=== PATIENT | male | born 1930 | race Caucasian/White ===

== ENCOUNTER 2016-04-04 13:08 | Inpatient (IN) | payer BC, OTHER ==
[~2016-04-04] VITALS: Ht 177.8 cm; Wt 79.3 kg
[~2016-04-04 13:08] MED LIST: CMD5 PO; GLIP5TAB3 PO; LEVO25TA5 PO; LISI-729 PO; MULT-190 PO; TCMD2 PO; ZCRT/40 PO
[2016-04-04] MEDS ORDERED: WARF2TAB8 PO (13:32)
[2016-04-04] MEDS ORDERED: WARF5TAB7 PO (13:32)
[2016-04-04] MEDS ORDERED: MIRT30TA2 PO (13:32)
[2016-04-04] MEDS ORDERED: SODIUM CHLORIDE 0.9% 1000ML 1,000 ML IV STA (13:32)
[2016-04-04] MEDS ORDERED: FURO-85 PO (13:32)
[2016-04-04] MEDS ORDERED: WARF3TAB6 PO (13:32)
--- NOTE | 2016-04-04 13:39 | EMERGENCY ROOM VISIT NOTE ---
History Report prepared by Willie: Lulu Humphries Under the Supervision of: Dr. Jade Gomez M.D. First contact with patient: 13:23 Chief Complaint: DIZZY Stated Complaint: DIZZINESS History of Present Illness The patient is an 85 year old male who presents to the Emergency Room with complaints of worsening dizziness for the past 3 days. He is accompanied by his daughter. She reports the patient fell 3 days ago while walking into his shower. The patient denied any injuries or trauma being sustained during the fall. This morning, the patient called his daughter and told her he had fallen out of bed earlier and was experiencing worsening dizziness. He has a history of dementia and short term memory loss from a stroke. His daughter states he complained of feeling "cold and shaky" and his skin and finger nails have been "blue tinged" recently. She notes the patient has also forgotten they were on the phone recently, and laid the phone down then walked away from it, which is very unusual for him. The patient denies any recent fevers or urinary symptoms. He is on daily Coumadin and Warfarin and his daughter states his most recent INR was around 2.7. He also has a history of atrial fibrillation and mitral valve prolapse. The patient denies any abdominal pain or nausea. He reports he has been eating well recently and states he last ate a grilled cheese sandwich for lunch. 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 A total of 10 systems reviewed and were otherwise negative. Past Medical & Surgical Medical Problems: (1) Anticoagulated on warfarin (2) Atrial fibrillation (3) Benign hypertension (4) Cerebral infarction (5) Diabetes mellitus type 2 (6) Dyslipidemia (7) Hypothyroidism (8) Paroxysmal atrial fibrillation Family History Patient reports no known family medical history. Social History Smoking Status: Never Smoker Alcohol Use: occasionally Drug Use: none Marital Status: Housing Status: lives alone Occupation Status: retired Current/Historical Medications Scheduled Furosemide (Lasix), 20 MG PO DAILY Glipizide (Glucotrol), 5 MG PO DAILY Levothyroxine Sodium (Levothyroxine Sodium), 25 MCG PO DAILY Lisinopril (Zestril), 1.25 MG PO DAILY Mirtazapine Soltab (Remeron Soltab), 30 MG PO DAILY Simvastatin (Zocor), 40 MG PO DAILY Warfarin Sod (Jantoven), 9 MG PO 5XWK Warfarin Sod (Jantoven), 5 MG PO 2XWK Warfarin Sod (Jantoven), 2 MG PO 2XWK Allergies Coded Allergies: Guaifenesin (Verified Allergy, Unknown, Exgest LA, 04/04/15) Phenylpropanolamine (Verified Allergy, Unknown, Exgest LA, 04/04/15) Promethazine (Verified Allergy, Unknown, unknown, 04/04/15) Quinine (Verified Allergy, Unknown, ?, 04/04/15) Sulfa Drugs (Verified Allergy, Unknown, ?, 04/04/15) Physical Exam Vital Signs Date Time Temp Pulse Resp B/P Pulse Ox O2 Delivery O2 Flow Rate FiO2 04/04/16 15:19 78 20 113/63 95 Room Air 04/04/16 15:18 83 20 113/63 95 Room Air 04/04/16 14:48 90 21 99/48 94 Room Air 04/04/16 13:58 82 04/04/16 13:16 36.9 80 18 90/59 98 Room Air Physical Exam Vital signs reviewed. General: Elderly-appearing 85 year old male, in no significant distress. Patient is somnolent but answers questions appropriately. HEENT: No scleral icterus, PERRLA, neck supple. Atraumatic. Cardiovascular: Regular rate and rhythm, no extra sounds. Pulmonary: Clear to auscultation bilaterally, normal work of breathing. Abdomen: Soft, nontender, nondistended, positive bowel sounds. Musculoskeletal: Atraumatic, no peripheral edema. Neurologic: Patient awake alert and oriented x 3, full strength in all 4 extremities. Cranial nerves 2 through 12 grossly intact. Skin: Warm to touch, but patient is noted to be afebrile. Skin is dry, no rash Medical Decision & Procedures ER Provider Diagnostic Interpretation: This X-Ray was reviewed and interpreted by myself and the radiologist. SINGLE VIEW CHEST IMPRESSION: Cardiomegaly and emphysema with no acute cardiopulmonary abnormality. Electronically signed by: Jordan Carr M.D. 04/04/2016 2:25 PM Dictated Date/Time: 04/04/2016 2:[address] scan was reviewed and interpreted by the radiologist and reviewed by myself. HEAD CT NONCONTRAST Impression: No significant change compared to the prior study. No acute intracranial abnormality. Extensive sinus disease as described above. Electronically signed by: Luis Eduardo Hirsch M.D. 04/04/2016 2:57 PM Dictated Date/Time: 04/04/2016 2:30 PM Laboratory Results 04/04/16 13:58 Red Blood Count 4.13, Mean Corpuscular Volume 90.1, Mean Corpuscular Hemoglobin 31.2, Mean Corpuscular Hemoglobin Concent 34.7, Mean Platelet Volume 10.1, Neutrophils (%) (Auto) 70.7, Lymphocytes (%) (Auto) 17.5, Monocytes (%) (Auto) 11.3, Eosinophils (%) (Auto) 0.3, Basophils (%) (Auto) 0.1, Neutrophils # (Auto ) 4.93, Lymphocytes # (Auto) 1.22, Monocytes # (Auto) 0.79, Eosinophils # (Auto ) 0.02, Basophils # (Auto) 0.01 04/04/16 13:58 Test 04/04/16 13:58 04/04/16 14:08 04/04/16 14:09 04/04/16 14:56 White Blood Count 6.98 K/uL (4.8-10.8) Red Blood Count 4.13 M/uL (4.7-6.1) Hemoglobin 12.9 g/dL (14.0-18.0) Hematocrit 37.2 % (42-52) Mean Corpuscular Volume 90.1 fL (80-100) Mean Corpuscular Hemoglobin 31.2 pg (25-34) Mean Corpuscular Hemoglobin Concent 34.7 g/dl (32-36) Platelet Count 163 K/uL (130-400) Mean Platelet Volume 10.1 fL (7.4-10.4) Neutrophils (%) (Auto) 70.7 % Lymphocytes (%) (Auto) 17.5 % Monocytes (%) (Auto) 11.3 % Eosinophils (%) (Auto) 0.3 % Basophils (%) (Auto) 0.1 % Neutrophils # (Auto) 4.93 K/uL (1.4-6.5) Lymphocytes # (Auto) 1.22 K/uL (1.2-3.4) Monocytes # (Auto) 0.79 K/uL (0.11-0.59) Eosinophils # (Auto) 0.02 K/uL (0-0.5) Basophils # (Auto) 0.01 K/uL (0-0.2) RDW Standard Deviation 43.9 fL (36.4-46.3) RDW Coefficient of Variation 13.4 % (11.5-14.5) Immature Granulocyte % (Auto) 0.1 % Immature Granulocyte # (Auto) 0.01 K/uL (0.00-0.02) Prothrombin Time 15.4 SECONDS (9.0-12.0) Prothromb Time International Ratio 1.4 (0.9-1.1) Activated Partial Thromboplast Time 26.4 SECONDS (21.0-31.0) Partial Thromboplastin Ratio 1.0 Anion Gap 10.0 mmol/L (3-11) Estimated GFR () 21.0 Estimated GFR (Non- 18.1 BUN/Creatinine Ratio 20.1 (10-20) Calcium Level 9.1 mg/dl (8.5-10.1) Magnesium Level 2.4 mg/dl (1.8-2.4) Total Creatine Kinase 2714 U/L (39-308) Creatine Kinase MB 3.0 ng/ml (0.5-3.6) Creatine Kinase MB Ratio 0.1 (0-3.0) Lipase 302 U/L (73-393) Bedside Lactic Acid Venous 1.91 mmol/L (0.90-1.70) Bedside Troponin I 0.030 ng/ml (0-0.045) Urine Color DK YELLOW Urine Appearance CLEAR (CLEAR) Urine pH 5.0 (4.5-7.5) Urine Specific [place] 1.022 (1.000-1.030) Urine Protein NEG (NEG) Urine Glucose (UA) NEG (NEG) Urine Ketones TRACE (NEG) Urine Occult Blood NEG (NEG) Urine Nitrite NEG (NEG) Urine Bilirubin NEG (NEG) Urine Urobilinogen NEG (NEG) Urine Leukocyte Esterase MODERATE (NEG) Urine WBC (Auto) 5-10 /hpf (0-5) Urine RBC (Auto) 0-4 /hpf (0-4) Urine Hyaline Casts (Auto) 1-5 /lpf (0-5) Urine Epithelial Cells (Auto) >30 /lpf (0-5) Urine Bacteria (Auto) NEG (NEG) Urine Yeast (Auto) (NONE PRSENT) Laboratory results per my review. Medications Administered Medications (Trade) Dose Ordered Sig/Bob Route Start Time Stop Time Status Last Admin Dose Admin Sodium Chloride (Nss 1000ml) 1,000 ml @ 125 mls/hr Q8H STAT IV 04/04/16 13:32 04/04/16 21:31 04/04/16 13:32 125 MLS/HR Piperacillin Sod/ Tazobactam Sod 4.5 gm 4.5 gm NOW STAT IV 04/04/16 14:25 04/04/16 14:26 DC 04/04/16 15:10 4.5 GM Sodium Chloride (Nss 500ml) 500 ml @ 999 mls/hr Q31M STAT IV 04/04/16 14:56 04/04/16 15:26 DC 04/04/16 14:56 999 MLS/HR ECG Indication: weakness Rate (beats per minute): 80 Rhythm: atrial fibrillation Findings: Q waves (Anterior), no acute ischemic change, no ectopy ED Course 1328: Past medical records reviewed. The patient was evaluated in room C7. A complete history and physical examination was performed. 1332: NSS 1000 ml @ 125 mls/hr IV. 1425: Zosyn 4.5 gm IV. 1456: NSS 500 ml @ 999 mls/hr IV. 1505: I discussed the patients case with Stephanie Fernández PA-C [facility] Hospitalist. The patient will be further evaluated. Medical Decision Etiologies such as metabolic, infection, hypo/hyperglycemia, electrolyte abnormalities, cardiac sources, intracerebral event, toxicologic, neurologic, as well as others were entertained. This patient was evaluated and appeared to be in no significant distress. IV access was obtained and laboratory work was drawn. The patient was placed on the groundwater monitoring technician and found to be in a rate controlled atrial fibrillation. Patient's laboratory work reveals an INR 1.8. He is in acute renal failure with a BUN of 60 and a creatinine of 3.0. He was hydrated with normal saline solution. Patient was noted to be mildly hypotensive, likely due to volume depletion. The patient will be evaluated by the hospitalist service for further evaluation and management. Consults Time Called: 1500 Consulting Physician: Stephanie Fernández PA-C, [facility] Hospitalist Returned Call: [phone] I discussed the patients case with Stephanie Fernández PA-C, [facility]. The patient will be further evaluated. Impression Primary Impression: Acute renal failure Additional Impressions: Hypotension, Dehydration Scribe Attestation The scribe's documentation has been prepared under my direction and personally reviewed by me in its entirety. I confirm that the note above accurately reflects all work, treatment, procedures, and medical decision making performed by me. Departure Information Dispostion Being Evaluated By Hospitalist Referrals Landy Paige M.D. (PCP) Patient Instructions A Signature Page, My [facility]
[2016-04-04 14:25] LABS: BASO % 0.1 %; BASO ABS # 0.01 K/uL (0-0.2); COMPLETE YES; EOS % 0.3 %; HEMATOCRIT 37.2 % (42-52); IG% 0.1 %; LYMPH % 17.5 %; LYMPH ABS # 1.22 K/uL (1.2-3.4); MEAN CELL VOLUME 90.1 fL (80-100); MEAN CORPUSCULAR HEMOGLOBIN 31.2 pg (25-34); MEAN CORPUSCULAR HGB CONC 34.7 g/dl (32-36); MEAN PLATELET VOLUME 10.1 fL (7.4-10.4); MONO % 11.3 %; NEUT % 70.7 %; PLATELET COUNT 163 K/uL (130-400); RED BLOOD COUNT 4.13 M/uL (4.7-6.1); WHITE BLOOD COUNT 6.98 K/uL (4.8-10.8)
[2016-04-04] MEDS ORDERED: PIPERACILLIN/TAZOBACTAM 4.5 GM/100ML D5W IV STA (14:25)
--- NOTE | 2016-04-04 14:26 | DIAGNOSTIC IMAGING REPORT ---
SINGLE VIEW CHEST CLINICAL HISTORY: Change in mental status. FINDINGS: An AP, portable, upright chest radiograph is compared to study dated 11/28/2014. Correlation is made with chest CT dated 08/26/2011. The examination is degraded by portable technique and patient rotation. The heart is mildly enlarged. The pulmonary vasculature is noncongested. Emphysema and chronic interstitial thickening is similar to previous. There is left basilar atelectasis. No airspace consolidation, large pleural effusion, or pneumothorax is seen. There is biapical scarring. The skeletal structures are osteopenic. The bony thorax is grossly intact. IMPRESSION: Cardiomegaly and emphysema with no acute cardiopulmonary abnormality. Electronically signed by: Jordan Carr M.D. 04/04/2016 2:25 PM Dictated Date/Time: 04/04/2016 2:23 PM
[2016-04-04 14:35] LABS: INR 1.4 (0.9-1.1); PROTHROMBIN TIME (PATIENT) 15.4 SECONDS (9.0-12.0)
[2016-04-04 14:51] LABS: BLOOD UREA NITROGEN 60 mg/dl (7-18); BUN/CREATININE RATIO 20.1 (10-20); CALCIUM 9.1 mg/dl (8.5-10.1); CARBON DIOXIDE 24 mmol/L (21-32); CHLORIDE 100 mmol/L (98-107); GLUCOSE 183 mg/dl (70-99); MAGNESIUM 2.4 mg/dl (1.8-2.4); POTASSIUM 3.9 mmol/L (3.5-5.1); SODIUM 134 mmol/L (136-145)
[2016-04-04] MEDS ORDERED: SODIUM CHLORIDE 0.9% 500ML 500 ML IV STA (14:56)
--- NOTE | 2016-04-04 14:59 | DIAGNOSTIC IMAGING REPORT ---
HEAD CT NONCONTRAST CT DOSE: 638.84 mGy.cm HISTORY: Altered mental status. TECHNIQUE: Multiaxial CT images of the head were performed without the use of intravenous contrast. Automated exposure control was utilized for this study. Comparison: Head CT 04/04/2015. Findings: Complete opacification of the maxillary sinuses, frontal sinuses, and anterior ethmoid cells. The mastoid air cells are clear. The calvarium and skull base are intact. There is no mass, hematoma, midline shift, acute infarct. White matter hypodensity is nonspecific but suggestive of microvascular ischemic change. The ventricles and sulci demonstrate mild age-related involutional changes. Impression: No significant change compared to the prior study. No acute intracranial abnormality. Extensive sinus disease as described above. Electronically signed by: Luis Eduardo Hirsch M.D. 04/04/2016 2:57 PM Dictated Date/Time: 04/04/2016 2:30 PM
[2016-04-04 15:06] LABS: CKMB/CK RATIO 0.1 (0-3.0)
[2016-04-04 15:34] LABS: URINE APPEARANCE CLEAR (CLEAR); URINE BILIRUBIN NEG (NEG); URINE COLOR DK YELLOW; URINE EPITHELIAL CELL AUTO >30 /lpf (0-5); URINE NITRITE NEG (NEG); URINE SPECIFIC GRAVITY 1.022 (1.000-1.030); UROBILINOGEN NEG (NEG); ZZUR CULT IF INDIC CLEAN CATCH YES
[2016-04-04 15:40] LABS: MANUAL MICROSCOPIC REQUIRED? NO; REVIEW REQ? YES
[2016-04-04] MEDS ORDERED: GLUCAGON FOR INJ 1 MG VIAL SQ PRN (16:15)
[2016-04-04] MEDS ORDERED: DEXTROSE 50% 50 ML SYR IV PRN (16:15)
[2016-04-04] MEDS ORDERED: ONDANSETRON INJ 2 MG/ML 2 ML VIAL IV PRN (16:15)
[2016-04-04] MEDS ORDERED: GLUCOSE 10 TABS/TUBE PO PRN (16:15)
[2016-04-04] MEDS ORDERED: GLUCOSE 40% GEL 15 GM TUBE PO PRN (16:15)
--- NOTE | 2016-04-04 16:24 | History and Physical ---
History & Physical Date & Time of Service: Apr 04, 2016 at 15:55 Chief Complaint: Dizziness Primary Care Physician: Landy Paige M.D. History of Present Illness Source: patient, family, clinic records, hospital records Patient seen and examined. 85 year old male with PMHx of Afib on Coumadin, HTN, HLD, DM2, hypothyroidism, CKD stage 3, Diastolic CHF and memory issues presents to the ED complaining of dizziness x 1 week. History is somewhat unclear as patient has memory issues and lives alone. Daughter is at bedside who helps provide additional information. Patient reports that he started getting dizzy about a week ago and objects seemed to be moving around him. He fell in the bathroom several days ago and he isn't sure why, but was able to get up without help since he was alone. He fell out of bed last night. He reports he feels very cold, weak and shaky. Daughter reports that he seems more confused than normal and needed help dressing himself this morning which isn't something that he normally needs help with. He does not remember if he has been eating and drinking well. He denies fevers, syncope, URI symptoms, chest pain, SOB, nausea , vomiting, diarrhea, dysuria, calf pain and edema. Today the patient's daughter went to see him because he said he didn't feel good. Per daughter the patients SBP was in the 80s so she brought him to the ED for further evaluation. In the ED BP is borderline hypotensive, CT head is negative, crea is 3 from baseline of 1.5, CK is 2700. He received IVFs and zosyn. He will be admitted for further workup and treatment. Past Medical/Surgical History Medical Problems: (1) Afib Status: Chronic (2) Atrial fibrillation Status: Chronic (3) Cerebral infarction Status: Chronic (4) CHF (congestive heart failure) Status: Chronic (5) CKD (chronic kidney disease), stage III Status: Chronic (6) CVA (cerebral vascular accident) Status: Chronic (7) DM2 (diabetes mellitus, type 2) Status: Chronic (8) HLD (hyperlipidemia) Status: Chronic (9) HTN (hypertension) Status: Chronic (10) Hypothyroidism Status: Chronic (11) Memory deficits Status: Chronic (12) EMELY on CPAP Status: Chronic Surgical Problems: (1) H/O colonoscopy Status: Chronic (2) History of cataract surgery Status: Chronic (3) S/P tendon repair Status: Chronic Family History FH: CHF (congestive heart failure) Social History Smoking Status: Former Smoker Alcohol Use: none Drug Use: none Marital Status: Housing status: lives alone Occupational Status: retired Immunizations History of Influenza Vaccine: Yes History of Tetanus Vaccine?: Yes History of Pneumococcal: Yes History of Hepatitis B Vaccine: No Multi-Drug Resistant Organisms History of MDRO: No Allergies Coded Allergies: Guaifenesin (Verified Allergy, Unknown, Exgest LA, 04/04/15) Phenylpropanolamine (Verified Allergy, Unknown, Exgest LA, 04/04/15) Promethazine (Verified Allergy, Unknown, unknown, 04/04/15) Quinine (Verified Allergy, Unknown, ?, 04/04/15) Sulfa Drugs (Verified Allergy, Unknown, ?, 04/04/15) Home Medications Scheduled Furosemide (Lasix), 20 MG PO DAILY Glipizide (Glucotrol), 5 MG PO DAILY Levothyroxine Sodium (Levothyroxine Sodium), 25 MCG PO DAILY Lisinopril (Zestril), 1.25 MG PO DAILY Mirtazapine Soltab (Remeron Soltab), 30 MG PO DAILY Simvastatin (Zocor), 40 MG PO DAILY Warfarin Sod (Jantoven), 9 MG PO 5XWK Warfarin Sod (Jantoven), 5 MG PO 2XWK Warfarin Sod (Jantoven), 2 MG PO 2XWK Review of Systems Constitutional: + chills, + weakness, No fever Eyes: No worsening of vision ENT: No nasal symptoms Respiratory: No cough, No shortness of breath Cardiovascular: No chest pain, No edema, No palpitations Abdomen: No constipation, No diarrhea, No nausea, No pain, No vomiting Musculoskeletal: No calf pain, No swelling Genitourinary - Male: No dysuria Neurologic: + vertigo, No numbness/tingling Psychiatric: No anxiety Endocrine: No fatigue Hematologic / Lymphatic: No abnormal bleeding/bruising, No clotting problems Integumentary: No itch, No rash Allergic / Immunologic: No environmental allergies Physical Exam Vital Signs Date Time Temp Pulse Resp B/P Pulse Ox O2 Delivery O2 Flow Rate FiO2 04/04/16 15:19 78 20 113/63 95 Room Air 04/04/16 15:18 83 20 113/63 95 Room Air 04/04/16 14:48 90 21 99/48 94 Room Air 04/04/16 13:58 82 04/04/16 13:16 36.9 80 18 90/59 98 Room Air General Appearance: + pertinent finding (WD/WM elderly appearing 85 year old male lying in bed in NAD with daughter at bedside ) Head: normocephalic, atraumatic Eyes: EOMI, sclerae normal ENT: hearing grossly normal, pharynx normal Neck: supple, no JVD, trachea midline Respiratory/Chest: chest non-tender, lungs clear, normal breath sounds, no respiratory distress, no accessory muscle use Cardiovascular: no edema, no gallop, no JVD, no murmur, normal peripheral pulses, + irregularly irregular (rate in the 80s) Abdomen/GI: normal bowel sounds, non tender, soft Back: normal inspection, no muscle spasm Extremities/Musculoskelatal: no calf tenderness, normal capillary refill, no pedal edema Neurologic/Psych: + pertinent finding (A&Ox3, forgetful,otherwise no motor or sensory deficits noted ) Skin: normal color, warm/dry, no rash Lymphatic: no adenopathy Diagnostics Laboratory Results Results Past 24 Hours Test 04/04/16 13:58 04/04/16 14:08 04/04/16 14:09 04/04/16 14:56 Range/Units White Blood Count 6.98 4.8-10.8 K/uL Red Blood Count 4.13 4.7-6.1 M/uL Hemoglobin 12.9 14.0-18.0 g/dL Hematocrit 37.2 42-52 % Mean Corpuscular Volume 90.1 80-100 fL Mean Corpuscular Hemoglobin 31.2 25-34 pg Mean Corpuscular Hemoglobin Concent 34.7 32-36 g/dl Platelet Count 163 130-400 K/uL Mean Platelet Volume 10.1 7.4-10.4 fL Neutrophils (%) (Auto) 70.7 % Lymphocytes (%) (Auto) 17.5 % Monocytes (%) (Auto) 11.3 % Eosinophils (%) (Auto) 0.3 % Basophils (%) (Auto) 0.1 % Neutrophils # (Auto) 4.93 1.4-6.5 K/uL Lymphocytes # (Auto) 1.22 1.2-3.4 K/uL Monocytes # (Auto) 0.79 0.11-0.59 K/uL Eosinophils # (Auto) 0.02 0-0.5 K/uL Basophils # (Auto) 0.01 0-0.2 K/uL RDW Standard Deviation 43.9 36.4-46.3 fL RDW Coefficient of Variation 13.4 11.5-14.5 % Immature Granulocyte % (Auto) 0.1 % Immature Granulocyte # (Auto) 0.01 0.00-0.02 K/uL Prothrombin Time 15.4 9.0-12.0 SECONDS Prothromb Time International Ratio 1.4 0.9-1.1 Activated Partial Thromboplast Time 26.4 21.0-31.0 SECONDS Partial Thromboplastin Ratio 1.0 Sodium Level 134 136-145 mmol/L Potassium Level 3.9 3.5-5.1 mmol/L Chloride Level 100 98-107 mmol/L Carbon Dioxide Level 24 21-32 mmol/L Anion Gap 10.0 3-11 mmol/L Blood Urea Nitrogen 60 7-18 mg/dl Creatinine 3.00 0.60-1.40 mg/dl Estimated GFR () 21.0 Estimated GFR (Non- 18.1 BUN/Creatinine Ratio 20.1 10-20 Random Glucose 183 70-99 mg/dl Calcium Level 9.1 8.5-10.1 mg/dl Magnesium Level 2.4 1.8-2.4 mg/dl Total Creatine Kinase 2714 39-308 U/L Creatine Kinase MB 3.0 0.5-3.6 ng/ml Creatine Kinase MB Ratio 0.1 0-3.0 Lipase 302 73-393 U/L Bedside Lactic Acid Venous 1.91 0.90-1.70 mmol/L Bedside Troponin I 0.030 0-0.045 ng/ml Urine Color DK YELLOW Urine Appearance CLEAR CLEAR Urine pH 5.0 4.5-7.5 Urine Specific [place] 1.022 1.000-1.030 Urine Protein NEG NEG Urine Glucose (UA) NEG NEG Urine Ketones TRACE NEG Urine Occult Blood NEG NEG Urine Nitrite NEG NEG Urine Bilirubin NEG NEG Urine Urobilinogen NEG NEG Urine Leukocyte Esterase MODERATE NEG Urine WBC (Auto) 5-10 0-5 /hpf Urine RBC (Auto) 0-4 0-4 /hpf Urine Hyaline Casts (Auto) 1-5 0-5 /lpf Urine Epithelial Cells (Auto) >30 0-5 /lpf Urine Bacteria (Auto) NEG NEG Urine Yeast (Auto) NONE PRSENT Microbiology Results 04/04/16 Blood Culture, Received Pending 04/04/16 Blood Culture, Received Pending 04/04/16 Urine Culture, Received Pending Diagnostic Radiology CXR Per radiologist read: IMPRESSION: Cardiomegaly and emphysema with no acute cardiopulmonary abnormality. CT HEAD Per radiologist read: Impression: No significant change compared to the prior study. No acute intracranial abnormality. Extensive sinus disease as described above. EKG Afib 80 BPM, QTc 410 Impression Assessment and Plan 85 year old male presents to the ED history somewhat unclear secondary to memory issues, but was apparently dizzy earlier in the week and now feeling generally weak ACUTE RENAL FAILURE ON CKD STAGE 3 -Admit to med/surg -Crea 3 from baseline of 1.5, BUN 60 -BP in the 90s on arrival - improved with IVF hydration now stable in the 110s systolically -Likely secondary to dehydration -Gentle IVF hydration - has history of diastolic CHF, but currently dry -hold Lisinopril, and Lasix -lytes stable -repeat PRP in AM -if crea does not improve consider renal US/nephrology consult -CBC, PRP, Mg daily ELEVATED CK -2700 today -IVFs -hold Statin -repeat in AM GENERALIZED WEAKNESS -likely secondary to dehydration -? flu - check PCR flu -IVFs -PT/OT eval -fall precautions ATRIAL FIBRILLATION -rate in the 80s -INR 1.4 - subtherapeutic -continue Coumadin - no indication to bridge at this time HLD -hold statin for elevated CK -repeat CK in AM HTN -running low secondary to dehydration, improved with IVFs -hold Lisinopril and Lasix -gentle IVFs -monitor per routine DIASTOLIC CHF -appears very dry -last echo with Grade 2 diastolic dysfunction and valvular disease -hold Lasix -cautious IVF hydration EMELY -continue CPAP DM2 -check A1c -hold glipizide -SSI coverage -BSG AC HS -consistent carb diet HYPOTHYROIDISM -continue Synthroid INSOMNIA -continue Remeron MEMORY ISSUES -no formal diagnosis of dementia -lives home alone with urgent care physician 2 days a week -discharge planning eval placed DVT PROPHYLAXIS: SCDs, Coumadin CODE STATUS: LEVEL 3, NO MECHANICAL VENTILATION per my discussion with the patient and his daughter DISPO:In my clinical judgment this beneficiary meets acute admission criteria, established by [facility], that includes being hospitalized through two midnights. Discharge planning eval placed Patient seen in collaboration with Dr. Barrios ATTENDING ADDENDUM care coordinated with ALBA Fernández please refer to her notes for full details, I agree with her notes patient seen and examined, records reviewed by myself as well on exam, patient seen resting in bed, comfortable feeling better, less confused/weak no other symptoms VS noted and reviewed oriented , not in distress, speaks in sentences with no effort nor accessory muscle use normal rate, irregularly irregular rhythm, no murmurs clear breath sounds bilaterally non distended, soft, nontender no neuro deficits Crea 3.0 INR 1.4 ASSESSMENT/PLAN> ACUTE RENAL FAILURE hold Lasix, Lisinopril NSS at 80cchr HYPOTENSION from volume depletion gentle IV fluids other diagnoses and plan of care as per ALBA Fernández's notes Ulisses Barrios MD
[2016-04-04] MEDS: SODIUM CHLORIDE 0.9% 1000ML 1,000 ML IV SCH (20:08)
[2016-04-04] MEDS: INSULIN ASPART 100 UNITS/ML 3 ML PEN SC SCH (21:00)
[2016-04-04 21:40] LABS: INFLUENZA A PCR Neg for Influ A (NEG); INFLUENZA B PCR Neg for Influ B (NEG)
[2016-04-04] MEDS: WARFARIN SOD 3 MG TAB PO SCH (22:31)
[2016-04-04 23:46] VITALS: BP 99/64; PULSE 85; TEMP 37.6; O2SAT 96
[2016-04-04 23:54] VITALS: BP 132/68; PULSE 88; TEMP 37.9; O2SAT 93; Ht 177.8 cm; Wt 79.3 kg
[2016-04-04 23:59] VITALS: O2SAT 93
[2016-04-05 04:00] VITALS: TEMP 36.7
[2016-04-05] MEDS: SODIUM CHLORIDE 0.9% 1000ML 1,000 ML IV SCH ×2 (04:52→17:41)
[2016-04-05] MEDS: INSULIN ASPART 100 UNITS/ML 3 ML PEN SC SCH ×4 (06:30→22:21)
[2016-04-05] MEDS: LEVOTHYROXINE 25 MCG TAB PO SCH (06:35)
[2016-04-05 06:59] VITALS: BP 109/67; PULSE 83; TEMP 36.7; O2SAT 98
[2016-04-05 07:34] LABS: HEMATOCRIT 35.6 % (42-52); MEAN CELL VOLUME 90.8 fL (80-100); MEAN CORPUSCULAR HEMOGLOBIN 31.9 pg (25-34); MEAN CORPUSCULAR HGB CONC 35.1 g/dl (32-36); PLATELET COUNT 147 K/uL (130-400); RED BLOOD COUNT 3.92 M/uL (4.7-6.1)
[2016-04-05 07:41] LABS: INR 1.4 (0.9-1.1); PROTHROMBIN TIME (PATIENT) 15.4 SECONDS (9.0-12.0)
[2016-04-05 08:03] LABS: ESTIMATED AVERAGE GLUCOSE 194 mg/dl; HA1C FLAG Normal (Normal)
[2016-04-05 08:13] LABS: BUN/CREATININE RATIO 19.7 (10-20); CALCIUM 8.5 mg/dl (8.5-10.1); CREATININE 2.3 mg/dl (0.60-1.40); MAGNESIUM 2.2 mg/dl (1.8-2.4); POTASSIUM 3.6 mmol/L (3.5-5.1)
[2016-04-05] MEDS: MIRTAZAPINE SOLTAB 15 MG PO SCH (09:35)
[2016-04-05 10:37] VITALS: O2SAT 93
[2016-04-05] MEDS: ACETAMINOPHEN 325 MG TAB PO PRN ×2 (13:02→23:26)
[2016-04-05] MEDS ORDERED: CEFTRIAXONE SOD INJ 1 GM in DEXTROSE 5% ADD-VANTAGE 50ML 50 ML IV SCH (14:00)
--- NOTE | 2016-04-05 14:18 | Progress Note ---
Medicine Progress Note Date & Time of Visit: Apr 05, 2016 at 14:09. Subjective patient seen with daughter at bedside she mentions patient still seems weak, sleepy on exam, patient states his "hair" hurts denies other pain no dyspnea, chest pain, palpitations, abdominal pain no other symptoms Objective Last 8 Hrs Date Time Temp Pulse Resp B/P Pulse Ox O2 Delivery O2 Flow Rate FiO2 04/05/16 10:37 93 Room Air 04/05/16 06:59 36.7 83 18 109/67 98 Room Air Physical Exam: General- oriented x 2, not in distress, sleepy Head- atraumatic Eyes- PERRL, EOMI, anicteric ENT- oropharynx clear Neck- supple, no JVD Lungs- clear to auscultation bilaterally Heart- normal rate, regular rhythm; no murmurs Abdomen- normal bowel sounds, soft, nontender Extremities- no pretibial edema, no calf tenderness Neuro- alert, oriented x 2; no gross focal deficits Skin- warm & dry Laboratory Results: Last 24 Hours Test 04/04/16 14:56 04/04/16 18:48 04/04/16 19:09 04/04/16 20:30 Urine Color DK YELLOW Urine Appearance CLEAR Urine pH 5.0 Urine Specific [place] 1.022 Urine Protein NEG Urine Glucose (UA) NEG Urine Ketones TRACE Urine Occult Blood NEG Urine Nitrite NEG Urine Bilirubin NEG Urine Urobilinogen NEG Urine Leukocyte Esterase MODERATE Urine WBC (Auto) 5-10 /hpf Urine RBC (Auto) 0-4 /hpf Urine Hyaline Casts (Auto) 1-5 /lpf Urine Epithelial Cells (Auto) >30 /lpf Urine Bacteria (Auto) NEG Urine Yeast (Auto) Influenza Type A (RT-PCR) Neg for Influ A Influenza Type B (RT-PCR) Neg for Influ B Bedside Glucose 150 mg/dl 159 mg/dl Test 04/05/16 06:38 04/05/16 07:22 04/05/16 11:27 White Blood Count 8.40 K/uL Red Blood Count 3.92 M/uL Hemoglobin 12.5 g/dL Hematocrit 35.6 % Mean Corpuscular Volume 90.8 fL Mean Corpuscular Hemoglobin 31.9 pg Mean Corpuscular Hemoglobin Concent 35.1 g/dl RDW Standard Deviation 43.6 fL RDW Coefficient of Variation 13.3 % Platelet Count 147 K/uL Mean Platelet Volume 10.0 fL Prothrombin Time 15.4 SECONDS Prothromb Time International Ratio 1.4 Sodium Level 140 mmol/L Potassium Level 3.6 mmol/L Chloride Level 106 mmol/L Carbon Dioxide Level 22 mmol/L Anion Gap 12.0 mmol/L Blood Urea Nitrogen 45 mg/dl Creatinine 2.30 mg/dl Est Creatinine Clear Calc Drug Dose 24.2 ml/min Estimated GFR () 28.9 Estimated GFR (Non- 25.0 BUN/Creatinine Ratio 19.7 Random Glucose 116 mg/dl Estimated Average Glucose 194 mg/dl Hemoglobin A1c 8.4 % Calcium Level 8.5 mg/dl Magnesium Level 2.2 mg/dl Total Creatine Kinase 1728 U/L Bedside Glucose 127 mg/dl 162 mg/dl Date/Time Source Procedure Growth Status 04/04/16 14:56 Urine , Clean Catch Urine Culture - Preliminary PIN-POINT GROWTH PRESENT, REINCUBATING. Resulted Assessment & Plan 85 year old male with DM, HTN, CKD, A fib, CHF, presenting with dizziness. ACUTE RENAL FAILURE ON CKD STAGE 3 -Crea 3 from baseline of 1.5, BUN 60 -Likely secondary to dehydration - check renal US - IV NSS at 80cc /he -hold Lisinopril, and Lasix - improving 3--> 2.3 ELEVATED CK -2700 today --> improving -IVFs -hold Statin GENERALIZED WEAKNESS -likely secondary to dehydration - r/o Infection ff up blood and urine cultures to r/o UTI CT head: sinusitis Flu negative -- Zosyn IV ATRIAL FIBRILLATION -rate in the 80s -INR 1.4 - subtherapeutic -continue Coumadin - no indication to bridge at this time HLD -hold statin for elevated CK -repeat CK in AM HTN -running low secondary to dehydration, improved with IVFs -hold Lisinopril and Lasix -gentle IVFs DIASTOLIC CHF -last echo with Grade 2 diastolic dysfunction and valvular disease -hold Lasix -cautious IVF hydration EMELY -continue CPAP DM2 - A1c: 8.4 -hold glipizide -SSI coverage -BSG AC HS -consistent carb diet HYPOTHYROIDISM -continue Synthroid INSOMNIA -continue Remeron MEMORY ISSUES -no formal diagnosis of dementia -lives home alone with care transition coordinator 2 days a week -discharge planning eval placed DVT PROPHYLAXIS: SCDs, Coumadin CODE STATUS: LEVEL 3, NO MECHANICAL VENTILATION per my discussion with the patient and his daughter DISPO Discharge planning eval placed Current Inpatient Medications: Current Inpatient Medications Medications (Trade) Dose Ordered Sig/Bob Route Start Time Stop Time Status Last Admin Dose Admin Acetaminophen (Tylenol Tab) 650 mg Q4H PRN PO 04/04/16 16:15 05/04/16 16:14 04/05/16 13:02 650 MG Ondansetron HCl (Zofran Inj) 4 mg Q6H PRN IV 04/04/16 16:15 05/04/16 16:14 Levothyroxine Sodium (Synthroid Tab) 25 mcg DAILYBB PO 04/05/16 06:30 05/05/16 06:59 04/05/16 06:35 25 MCG Warfarin Sodium (Coumadin Tab) 2 mg TuTh@1600 PO 04/08/16 16:00 05/08/16 15:59 Warfarin Sodium (Coumadin Tab) 9 mg SuMoWeFrSa@1600 PO 04/04/16 21:00 05/04/16 20:59 04/04/16 22:31 9 MG Warfarin Sodium (Coumadin Tab) 5 mg TuTh@1600 PO 04/08/16 16:00 05/08/16 15:59 Mirtazapine (Remeron Solutab) 30 mg DAILY PO 04/05/16 09:00 05/05/16 08:59 04/05/16 09:35 30 MG Insulin Aspart (novoLOG ASPART) SLIDING SCALE If C... ACHS SC 04/04/16 21:00 05/04/16 20:59 04/05/16 13:00 1 UNITS Glucose (Glucose 40% Gel) 15-30 GRAMS 15 GRAMS... UD PRN PO 04/04/16 16:15 05/04/16 16:14 Glucose (Glucose Chew Tab) 4-8 Tablets 4 Tabl... UD PRN PO 04/04/16 16:15 05/04/16 16:14 Dextrose (Dextrose 50% 50ML Syringe) 25-50ML OF 50% DW IV FOR... UD PRN IV 04/04/16 16:15 05/04/16 16:14 Glucagon 1 mg 1 mg UD PRN SQ 04/04/16 16:15 05/04/16 16:14 Sodium Chloride (Nss 1000ml) 1,000 ml @ 80 mls/hr [id number] IV 04/04/16 16:15 05/04/16 16:14 04/05/16 04:52 80 MLS/HR
[2016-04-05] MEDS ORDERED: PIPERACILL/TAZOBAC CONSULT ACTIVE PRN (14:30)
[2016-04-05 14:39] VITALS: BP 91/57; PULSE 83; TEMP 37.5; O2SAT 97
[2016-04-05 15:30] VITALS: O2SAT 93
[2016-04-05] MEDS: PIPERACILL/TAZOBAC IV 3.375 GM in DEXTROSE 5% 100ML IV SCH ×2 (16:10→23:26)
[2016-04-05] MEDS: WARFARIN SOD 3 MG TAB PO SCH (16:11)
--- NOTE | 2016-04-05 18:38 | DIAGNOSTIC IMAGING REPORT ---
RENAL ULTRASOUND HISTORY: acute renal failure COMPARISON: None. FINDINGS: Right kidney: 10.5 cm. No hydronephrosis. Normal corticomedullary differentiation and mild cortical thinning. Left kidney: 10.8 cm. No hydronephrosis. Normal corticomedullary differentiation and mild cortical thinning. Bladder: No bladder wall thickening. The bilateral ureteral jets were not identified. Enlarged prostate gland. IMPRESSION: 1. No hydronephrosis. 2. Enlarged prostate. Electronically signed by: Luis Eduardo Hirsch M.D. 04/05/2016 6:36 PM Dictated Date/Time: 04/05/2016 6:35 PM
[2016-04-05 20:58] VITALS: TEMP 38
[2016-04-06 00:02] VITALS: BP 118/70; PULSE 84; TEMP 38.9; O2SAT 93
[2016-04-06 01:11] VITALS: TEMP 36.7
[2016-04-06] MEDS: LEVOTHYROXINE 25 MCG TAB PO SCH (05:40)
[2016-04-06] MEDS: SODIUM CHLORIDE 0.9% 1000ML 1,000 ML IV SCH ×2 (05:40→18:08)
[2016-04-06 06:54] LABS: INR 1.8 (0.9-1.1); PROTHROMBIN TIME (PATIENT) 19.2 SECONDS (9.0-12.0)
[2016-04-06 07:00] VITALS: BP 120/80; PULSE 62; TEMP 36.6; O2SAT 94
[2016-04-06 07:20] LABS: CREATININE 2.1 mg/dl (0.60-1.40)
[2016-04-06 07:30] LABS: THYROID STIMULATING HORMONE 1.76 uIu/ml (0.300-4.500)
[2016-04-06 08:00] VITALS: O2SAT 93
[2016-04-06] MEDS: PIPERACILL/TAZOBAC IV 3.375 GM in DEXTROSE 5% 100ML IV SCH ×2 (08:24→16:05)
[2016-04-06] MEDS: MIRTAZAPINE SOLTAB 15 MG PO SCH (08:24)
[2016-04-06] MEDS: INSULIN ASPART 100 UNITS/ML 3 ML PEN SC SCH ×4 (08:33→21:00)
--- NOTE | 2016-04-06 12:28 | Progress Note ---
Medicine Progress Note Date & Time of Visit: Apr 06, 2016 at 12:21. Subjective patient seen sitting up in bedside chair, eating states he still feels weak today appetite somewhat better has mild frontal headache denies chest pain, cough, dyspnea, abdominal pain, problems with urination Objective Last 8 Hrs Date Time Temp Pulse Resp B/P Pulse Ox O2 Delivery O2 Flow Rate FiO2 04/06/16 08:00 93 Room Air 04/06/16 07:00 36.6 62 20 120/80 94 Room Air Physical Exam: General- oriented x 2, not in distress, more alert, speaks in sentences with no effort Head- atraumatic Eyes- , EOMI, anicteric Neck- no JVD Lungs- clear to auscultation bilaterally Heart- normal rate, regular rhythm; no murmurs Abdomen- normal bowel sounds, soft, nontender Extremities- no pretibial edema, no calf tenderness Neuro- alert, oriented x 2; no gross focal deficits Skin- warm & dry Laboratory Results: Last 24 Hours Test 04/05/16 16:10 04/05/16 20:51 04/06/16 06:24 04/06/16 07:17 Bedside Glucose 145 mg/dl 184 mg/dl 115 mg/dl Prothrombin Time 19.2 SECONDS Prothromb Time International Ratio 1.8 Creatinine 2.10 mg/dl Est Creatinine Clear Calc Drug Dose 26.6 ml/min Estimated GFR () 32.3 Estimated GFR (Non- 27.9 Thyroid Stimulating Hormone (TSH) 1.760 uIu/ml Test 04/06/16 11:02 04/06/16 12:10 Bedside Glucose 151 mg/dl Assessment & Plan 85 year old male with DM, HTN, CKD, A fib, CHF, presenting with dizziness. ACUTE RENAL FAILURE ON CKD STAGE 3 -Crea 3 from baseline of 1.5, BUN 60 -Likely secondary to dehydration - renal US: no hydronephrosis, (+) enlarged prostate - IV NSS at 80cc /hr - hold Lisinopril, and Lasix - improving 3--> 2.3--> 2.1 will need outpatient Urology eval for enlarged prostate GENERALIZED WEAKNESS -likely secondary to dehydration, Sinusitis infection - CT head: complete opacification of sinuses Blood cultures: negative Urine: gamma strep, not enterococcus Flu negative -- Zosyn IV Day 2 for Sinusitis IV fluids ELEVATED CK -2700 today --> improving -IVFs -hold Statin ATRIAL FIBRILLATION -rate in the 80s -INR 1.8 - subtherapeutic -continue Coumadin - no indication to bridge at this time HLD -hold statin for elevated CK HTN -running low secondary to dehydration, improved with IVFs -hold Lisinopril and Lasix -gentle IVFs DIASTOLIC CHF -last echo with Grade 2 diastolic dysfunction and valvular disease -hold Lasix -cautious IVF hydration EMELY -continue CPAP DM2 - A1c: 8.4 -hold glipizide -SSI coverage -BSG AC HS -consistent carb diet HYPOTHYROIDISM -continue Synthroid INSOMNIA -continue Remeron MEMORY ISSUES -no formal diagnosis of dementia -lives home alone with youth care worker 2 days a week -discharge planning eval placed DVT PROPHYLAXIS: SCDs, Coumadin CODE STATUS: LEVEL 3, NO MECHANICAL VENTILATION per my discussion with the patient and his daughter DISPO will likely need to be transitioned to SNF Current Inpatient Medications: Current Inpatient Medications Medications (Trade) Dose Ordered Sig/Bob Route Start Time Stop Time Status Last Admin Dose Admin Acetaminophen (Tylenol Tab) 650 mg Q4H PRN PO 04/04/16 16:15 05/04/16 16:14 04/05/16 23:26 650 MG Ondansetron HCl (Zofran Inj) 4 mg Q6H PRN IV 04/04/16 16:15 05/04/16 16:14 Levothyroxine Sodium (Synthroid Tab) 25 mcg DAILYBB PO 04/05/16 06:30 05/05/16 06:59 04/06/16 05:40 25 MCG Warfarin Sodium (Coumadin Tab) 2 mg TuTh@1600 PO 04/08/16 16:00 05/08/16 15:59 Warfarin Sodium (Coumadin Tab) 9 mg SuMoWeFrSa@1600 PO 04/04/16 21:00 05/04/16 20:59 04/05/16 16:11 9 MG Warfarin Sodium (Coumadin Tab) 5 mg TuTh@1600 PO 04/08/16 16:00 05/08/16 15:59 Mirtazapine (Remeron Solutab) 30 mg DAILY PO 04/05/16 09:00 05/05/16 08:59 04/06/16 08:24 30 MG Insulin Aspart (novoLOG ASPART) SLIDING SCALE If C... ACHS SC 04/04/16 21:00 05/04/16 20:59 04/06/16 08:33 1 UNITS Glucose (Glucose 40% Gel) 15-30 GRAMS 15 GRAMS... UD PRN PO 04/04/16 16:15 05/04/16 16:14 Glucose (Glucose Chew Tab) 4-8 Tablets 4 Tabl... UD PRN PO 04/04/16 16:15 05/04/16 16:14 Dextrose (Dextrose 50% 50ML Syringe) 25-50ML OF 50% DW IV FOR... UD PRN IV 04/04/16 16:15 05/04/16 16:14 Glucagon 1 mg 1 mg UD PRN SQ 04/04/16 16:15 05/04/16 16:14 Sodium Chloride (Nss 1000ml) 1,000 ml @ 80 mls/hr [id number] IV 04/04/16 16:15 05/04/16 16:14 04/06/16 05:40 80 MLS/HR Piperacillin Sod/ Tazobactam Sod 1 ea 1 ea UD PRN N/A 04/05/16 14:30 05/05/16 14:29 Piperacillin Sod/ Tazobactam Sod/ Dextrose (Zosyn Iv/D5 100ml) 115 ml @ 28.75 mls/ hr Q8H IV 04/05/16 16:00 04/15/16 15:59 04/06/16 08:24 28.75 MLS/HR
[2016-04-06 13:15] LABS: BUN/CREATININE RATIO 13.7 (10-20); CALCIUM 8.3 mg/dl (8.5-10.1); CREATININE 2.1 mg/dl (0.60-1.40); POTASSIUM 3.8 mmol/L (3.5-5.1)
[2016-04-06 14:39] VITALS: BP 114/70; PULSE 89; TEMP 36.6; O2SAT 98
[2016-04-06 16:00] VITALS: O2SAT 93
[2016-04-06] MEDS: WARFARIN SOD 3 MG TAB PO SCH (16:05)
[2016-04-07] MEDS: PIPERACILL/TAZOBAC IV 3.375 GM in DEXTROSE 5% 100ML IV SCH ×4 (00:23→23:48)
[2016-04-07 01:17] VITALS: BP 121/82; PULSE 80; TEMP 36.4; O2SAT 97
[2016-04-07] MEDS: LEVOTHYROXINE 25 MCG TAB PO SCH (06:20)
[2016-04-07] MEDS: SODIUM CHLORIDE 0.9% 1000ML 1,000 ML IV SCH ×2 (06:56→19:00)
[2016-04-07 07:19] LABS: INR 2.1 (0.9-1.1); PROTHROMBIN TIME (PATIENT) 23.5 SECONDS (9.0-12.0)
[2016-04-07] MEDS: INSULIN ASPART 100 UNITS/ML 3 ML PEN SC SCH ×4 (07:30→21:00)
[2016-04-07 07:44] LABS: CREATININE 2.1 mg/dl (0.60-1.40)
[2016-04-07 07:52] VITALS: BP 127/67; PULSE 73; TEMP 36.4; O2SAT 97
[2016-04-07] MEDS: MIRTAZAPINE SOLTAB 15 MG PO SCH (09:40)
[2016-04-07 11:31] LABS: BUN/CREATININE RATIO 10.8 (10-20); CALCIUM 8.1 mg/dl (8.5-10.1); CREATININE 1.9 mg/dl (0.60-1.40); POTASSIUM 3.9 mmol/L (3.5-5.1)
[2016-04-07] MEDS: WARFARIN SOD 3 MG TAB PO SCH (15:37)
[2016-04-07 16:00] VITALS: O2SAT 97
--- NOTE | 2016-04-07 16:04 | Nephrology Consultation ---
Nephrology Consultation Date of Consultation: Apr 07, 2016. 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 He had temp to 38.9 on evening of presentation. All cxs negative to date. Imaging shows extensive sinusitis. MAURIZIO presumed to be prerenal; pt presented on ACEI, diuretic which were held at admission. He had transient confusion/problems w/ ADLs prior to presentation as well. Creat this am is 1.9; no issues with electrolytes. CK was trending down, last value 1728 on 04/05. He has received IVF and zosyn; currently on ns at 80 mL hourly. No oliguria. No HTN since admission. Baseline creatinine is 1.5-1.6 from 09/2014-. Pt has no complaints currently. Past Medical/Surgical History Medical Problems: (1) Acute renal failure Status: Acute (2) Atrial fibrillation Status: Chronic (3) Cerebral infarction Status: Chronic (4) Dehydration Status: Acute (5) Fall Status: Acute (6) Head injury Status: Acute (7) Hypotension Status: Acute as per HPI Family History FH: CHF (congestive heart failure) Social History Smoking Status: Unknown if Ever Smoked Alcohol Use: occasionally Drug Use: none Marital Status: Housing Status: lives alone Occupation Status: retired Allergies Coded Allergies: Guaifenesin (Verified Allergy, Unknown, Exgest LA, 04/04/15) Phenylpropanolamine (Verified Allergy, Unknown, Exgest LA, 04/04/15) Promethazine (Verified Allergy, Unknown, unknown, 04/04/15) Quinine (Verified Allergy, Unknown, ?, 04/04/15) Sulfa Drugs (Verified Allergy, Unknown, ?, 04/04/15) Medications Current Inpatient Medications Medications (Trade) Dose Ordered Sig/Bob Route Start Time Stop Time Status Last Admin Dose Admin Acetaminophen (Tylenol Tab) 650 mg Q4H PRN PO 04/04/16 16:15 05/04/16 16:14 04/05/16 23:26 650 MG Ondansetron HCl (Zofran Inj) 4 mg Q6H PRN IV 04/04/16 16:15 05/04/16 16:14 Levothyroxine Sodium (Synthroid Tab) 25 mcg DAILYBB PO 04/05/16 06:30 05/05/16 06:59 04/07/16 06:20 25 MCG Warfarin Sodium (Coumadin Tab) 2 mg TuTh@1600 PO 04/08/16 16:00 05/08/16 15:59 Warfarin Sodium (Coumadin Tab) 9 mg SuMoWeFrSa@1600 PO 04/04/16 21:00 05/04/16 20:59 04/06/16 16:05 9 MG Warfarin Sodium (Coumadin Tab) 5 mg TuTh@1600 PO 04/08/16 16:00 05/08/16 15:59 Mirtazapine (Remeron Solutab) 30 mg DAILY PO 04/05/16 09:00 05/05/16 08:59 04/07/16 09:40 30 MG Insulin Aspart (novoLOG ASPART) SLIDING SCALE If C... ACHS SC 04/04/16 21:00 05/04/16 20:59 04/06/16 13:02 1 UNITS Glucose (Glucose 40% Gel) 15-30 GRAMS 15 GRAMS... UD PRN PO 04/04/16 16:15 05/04/16 16:14 Glucose (Glucose Chew Tab) 4-8 Tablets 4 Tabl... UD PRN PO 04/04/16 16:15 05/04/16 16:14 Dextrose (Dextrose 50% 50ML Syringe) 25-50ML OF 50% DW IV FOR... UD PRN IV 04/04/16 16:15 05/04/16 16:14 Glucagon 1 mg 1 mg UD PRN SQ 04/04/16 16:15 05/04/16 16:14 Sodium Chloride (Nss 1000ml) 1,000 ml @ 80 mls/hr [id number] IV 04/04/16 16:15 05/04/16 16:14 04/07/16 06:56 80 MLS/HR Piperacillin Sod/ Tazobactam Sod 1 ea 1 ea UD PRN N/A 04/05/16 14:30 05/05/16 14:29 Piperacillin Sod/ Tazobactam Sod/ Dextrose (Zosyn Iv/D5 100ml) 115 ml @ 28.75 mls/ hr Q8H IV 04/05/16 16:00 04/15/16 15:59 04/07/16 08:35 28.75 MLS/HR Home Meds and Scripts Medications Dose Route/Sig Max Daily Dose Days Date Category Dose Instructions Jantoven (Warfarin Sodium) 2 Mg Tab 2 Mg PO 2XWK 04/04/16 Reported TAKE ALONG WITH 5MG TAB TO EQUAL 7MG ON TUESDAYS AND THURSDAYS Jantoven (Warfarin Sodium) 5 Mg Tab 5 Mg PO 2XWK 04/04/16 Reported TAKE ALONG WITH 2MG TAB TO EQUAL 7MG ON TUESDAYS & THURSDAYS Jantoven (Warfarin Sodium) 3 Mg Tab 9 Mg PO 5XWK 04/04/16 Reported Lasix (Furosemide) 20 Mg Tab 20 Mg PO DAILY 04/04/16 Reported Remeron Soltab (Mirtazapine) 30 Mg Soltab 30 Mg PO DAILY 04/04/16 Reported Levothyroxine Sodium 25 Mcg Tab 25 Mcg PO DAILY 30 11/28/14 Reported Zestril (Lisinopril) 5 Mg Tab 1.25 Mg PO DAILY 11/28/14 Reported PT TAKES 1/2 OF A 2.5MG TAB Zocor (Simvastatin) 40 Mg Tab 40 Mg PO DAILY 08/26/11 Reported Glucotrol (Glipizide) 5 Mg Tab 5 Mg PO DAILY 08/26/11 Reported take before a meal Review of Systems Constitutional: + problem reported (pt denies F or weakness/fatigue but see HPI ) Eyes: No redness, No worsening of vision ENT: No hearing loss, No sore throat Respiratory: No cough, No shortness of breath Cardiac: No chest pain, No edema, No palpitations Abdomen: No constipation, No diarrhea, No nausea, No pain, No vomiting Musculoskeletal: No joint pain, No muscle pain Male : No dysuria, No hematuria, No urinary frequency Neuro: + memory loss (though pt denies), + weakness (pt denies but hpi supports this) Psych: No anxiety, No depression symptoms Heme: No abnormal bleeding/bruising Endo: No fatigue Skin: No rash Physical Exam Date Time Temp Pulse Resp B/P Pulse Ox O2 Delivery O2 Flow Rate FiO2 04/07/16 08:00 Room Air 04/07/16 07:52 36.4 73 18 127/67 97 Room Air 04/07/16 01:17 36.4 80 20 121/82 97 Room Air 04/06/16 23:59 Room Air 04/06/16 16:00 93 Room Air 24-Hour Column 04/07/16 08:00 Intake Total 2555 ml Output Total 650 ml Balance 1905 ml General Appearance: WD/WN, no apparent distress, + thin Eyes: EOMI ENT: + nasal congestion, + muffled/hoarse voice Neck: supple Respiratory/Chest: no respiratory distress (on RA), + crackles (L basilar crackles) Cardiovascular: regular rate, rhythm, + pertinent finding (distant HS; no murmur heard) Abdomen: normal bowel sounds, non tender, soft (no anaya) Extremities: non-tender, no pedal edema Neurologic/Psych: alert, normal mood/affect, + pertinent finding (slight psychomotor slowing, ? insight; marked generalized weakness >> needs most of my strength to hold him sitting up for lung exam) Skin: no jaundice, warm/dry, no rash, + pallor Diagnostics Last 24 Hours Test 04/06/16 16:11 04/06/16 20:31 04/07/16 07:01 04/07/16 07:29 Bedside Glucose 164 mg/dl 149 mg/dl 126 mg/dl Prothrombin Time 23.5 SECONDS Prothromb Time International Ratio 2.1 Creatinine 2.10 mg/dl Est Creatinine Clear Calc Drug Dose 26.6 ml/min Estimated GFR () 32.3 Estimated GFR (Non- 27.9 Test 04/07/16 10:30 04/07/16 11:29 Sodium Level 141 mmol/L Potassium Level 3.9 mmol/L Chloride Level 109 mmol/L Carbon Dioxide Level 21 mmol/L Anion Gap 11.0 mmol/L Blood Urea Nitrogen 21 mg/dl Creatinine 1.90 mg/dl Est Creatinine Clear Calc Drug Dose 29.3 ml/min Estimated GFR () 36.4 Estimated GFR (Non- 31.4 BUN/Creatinine Ratio 10.8 Random Glucose 126 mg/dl Calcium Level 8.1 mg/dl Bedside Glucose 130 mg/dl Diagnostic Radiology: renal u/s 04/05 symmetric kidneys, no bladder wall thickening and with prostatomegaly; no other lesion cxr > cardiomegaly and copd; no acute process head CT > complete opacification of maxillary/ frontal/ anterior tehmoid cells though mastoids clear; possible microvascular ischemic changes; no acute process uacm 04/04 > dark yellow, trace ketones, moderate LE, 5-10 WBC; > 30 epithelial cells; no bacter; no prot/blood urine cx 04/04 grew gamma strep; blood cxs x 2 admission neg; flu serologies negative Assessment & Plan 85 y/o M admitted 04/03 w/ weakness, confusion, hypotension, MAURIZIO on CKD ( presenting creatinine 3) and fever. Has extensive sinus disease on CT scan; else no infection source found. Creatinine has slowly responded to hydration and is trending back toward baseline. Baseline creatinine 1.5-1.6 from 09/2014-. No recent medication changes. Past hx of orthostatic hypotension. mild anemia, stable. MAURIZIO on CKD 3 ATN attributed to hypotension, to febrile illness; doubt rhabdomyolysis given lab profile -cont to hold acei, diuretic >> may not need these at d/c -check orthostatic bp, hr and PT eval -recheck ck w/ labs tomorrow> ordered -reasonable to continue current NS at 80 mL hourly -daily bmp while in house Febrile illness/ hypotension at admission, w/ F resolved > sinusitis is likeliest cause no evidence of cardiac issues contributing to lower bp; on zosyn L basilar crackles -no evidence of volume overload but valvular hf hx noted; Dr Barrios aware and will check cxr Appreciate consult; will follow with you. Care coordinated w/ Dr. Barrios
[2016-04-07 16:06] VITALS: BP 126/80; PULSE 75; TEMP 36.5; O2SAT 97
--- NOTE | 2016-04-07 20:38 | Progress Note ---
Medicine Progress Note Date & Time of Visit: Apr 07, 2016 at 20:32. Subjective patient seen laying in bed, comfortable states he feels a little better today appetite slowly improving still feels weak than baseline no abdominal pain, nausea no cough, chest pain spoke with daughter Monique, and she noted that this afternoon his dad was having visual hallucinations and was disoriented this evening, patient is oriented and answers all questions appropriately Objective Last 8 Hrs Date Time Temp Pulse Resp B/P Pulse Ox O2 Delivery O2 Flow Rate FiO2 04/07/16 16:06 36.5 75 18 126/80 97 Room Air 04/07/16 16:00 97 Room Air Physical Exam: General- oriented x 2, not in distress, more alert, speaks in sentences with no effort Head- atraumatic Eyes- EOMI, anicteric Neck- no JVD Lungs- (+) mild rales at the left base, no wheezes Heart- normal rate, regular rhythm; no murmurs Abdomen- normal bowel sounds, soft, nontender Extremities- no pretibial edema, no calf tenderness Neuro- alert, oriented x 2; no gross focal deficits Skin- warm & dry Laboratory Results: Last 24 Hours Test 04/07/16 07:01 04/07/16 07:29 04/07/16 10:30 04/07/16 11:29 Prothrombin Time 23.5 SECONDS Prothromb Time International Ratio 2.1 Creatinine 2.10 mg/dl 1.90 mg/dl Est Creatinine Clear Calc Drug Dose 26.6 ml/min 29.3 ml/min Estimated GFR () 32.3 36.4 Estimated GFR (Non- 27.9 31.4 Bedside Glucose 126 mg/dl 130 mg/dl Sodium Level 141 mmol/L Potassium Level 3.9 mmol/L Chloride Level 109 mmol/L Carbon Dioxide Level 21 mmol/L Anion Gap 11.0 mmol/L Blood Urea Nitrogen 21 mg/dl BUN/Creatinine Ratio 10.8 Random Glucose 126 mg/dl Calcium Level 8.1 mg/dl Test 04/07/16 16:37 04/07/16 20:00 Bedside Glucose 123 mg/dl 128 mg/dl Assessment & Plan 85 year old male with DM, HTN, CKD, A fib, CHF, presenting with dizziness. ACUTE RENAL FAILURE ON CKD STAGE 3 -Crea 3 from baseline of 1.5, BUN 60 -Likely secondary to dehydration - renal US: no hydronephrosis, (+) enlarged prostate - IV NSS at 80cc /hr - hold Lisinopril, and Lasix - improving 3--> 2.3--> 2.1--> 1.9 will need outpatient Urology eval for enlarged prostate -- appreciate Dr. Sellers's input GENERALIZED WEAKNESS -likely secondary to dehydration, Sinusitis infection - CT head: complete opacification of sinuses Blood cultures: negative Urine: gamma strep, not enterococcus Flu negative -- Zosyn IV Day 3 for Sinusitis IV fluids EPISODE OF HALLUCINATIONS, [facility] - monitor ELEVATED CK -2700 today --> improving -IVFs -hold Statin ATRIAL FIBRILLATION -rate in the 80s -INR 2.1 -continue Coumadin HLD -hold statin for elevated CK HTN - marginal on admisison, secondary to dehydration, improved with IVFs -held Lisinopril and Lasix -gentle IVFs DIASTOLIC CHF -last echo with Grade 2 diastolic dysfunction and valvular disease -hold Lasix -cautious IVF hydration EMELY -continue CPAP DM2 - A1c: 8.4 -hold glipizide -SSI coverage -BSG AC HS -consistent carb diet HYPOTHYROIDISM -continue Synthroid INSOMNIA -continue Remeron MEMORY ISSUES -no formal diagnosis of dementia -lives home alone with client care specialist 2 days a week -discharge planning eval placed DVT PROPHYLAXIS: SCDs, Coumadin CODE STATUS: LEVEL 3, NO MECHANICAL VENTILATION per my discussion with the patient and his daughter DISPO will likely need to be transitioned to SNF Current Inpatient Medications: Current Inpatient Medications Medications (Trade) Dose Ordered Sig/Bob Route Start Time Stop Time Status Last Admin Dose Admin Acetaminophen (Tylenol Tab) 650 mg Q4H PRN PO 04/04/16 16:15 05/04/16 16:14 04/05/16 23:26 650 MG Ondansetron HCl (Zofran Inj) 4 mg Q6H PRN IV 04/04/16 16:15 05/04/16 16:14 Levothyroxine Sodium (Synthroid Tab) 25 mcg DAILYBB PO 04/05/16 06:30 05/05/16 06:59 04/07/16 06:20 25 MCG Warfarin Sodium (Coumadin Tab) 2 mg TuTh@1600 PO 04/08/16 16:00 05/08/16 15:59 Warfarin Sodium (Coumadin Tab) 9 mg SuMoWeFrSa@1600 PO 04/04/16 21:00 05/04/16 20:59 04/07/16 15:37 9 MG Warfarin Sodium (Coumadin Tab) 5 mg TuTh@1600 PO 04/08/16 16:00 05/08/16 15:59 Mirtazapine (Remeron Solutab) 30 mg DAILY PO 04/05/16 09:00 05/05/16 08:59 04/07/16 09:40 30 MG Insulin Aspart (novoLOG ASPART) SLIDING SCALE If C... ACHS SC 04/04/16 21:00 05/04/16 20:59 04/06/16 13:02 1 UNITS Glucose (Glucose 40% Gel) 15-30 GRAMS 15 GRAMS... UD PRN PO 04/04/16 16:15 05/04/16 16:14 Glucose (Glucose Chew Tab) 4-8 Tablets 4 Tabl... UD PRN PO 04/04/16 16:15 05/04/16 16:14 Dextrose (Dextrose 50% 50ML Syringe) 25-50ML OF 50% DW IV FOR... UD PRN IV 04/04/16 16:15 05/04/16 16:14 Glucagon 1 mg 1 mg UD PRN SQ 04/04/16 16:15 05/04/16 16:14 Sodium Chloride (Nss 1000ml) 1,000 ml @ 80 mls/hr [id number] IV 04/04/16 16:15 05/04/16 16:14 04/07/16 19:00 80 MLS/HR Piperacillin Sod/ Tazobactam Sod 1 ea 1 ea UD PRN N/A 04/05/16 14:30 05/05/16 14:29 Piperacillin Sod/ Tazobactam Sod/ Dextrose (Zosyn Iv/D5 100ml) 115 ml @ 28.75 mls/ hr Q8H IV 04/05/16 16:00 04/15/16 15:59 04/07/16 15:37 28.75 MLS/HR
--- NOTE | 2016-04-07 21:50 | DIAGNOSTIC IMAGING REPORT ---
CHEST ONE VIEW PORTABLE HISTORY: Cough. r/o pneumonia COMPARISON: Chest 04/04/2016. FINDINGS: The heart is top normal in size. No focal lung consolidations to suggest pneumonia. No evidence for pulmonary edema. No pleural effusions. No pneumothorax. There is 9 mm nodular density within the left mid to lower lung zone. This was not present on the prior study and may represent a nipple shadow. IMPRESSION: 1. No focal lung consolidations to suggest pneumonia. 2. A 9 mm nodular density within the left mid to lower lung zone. This was not present on the prior study and could represent a nipple shadow. A pulmonary nodule could also have a similar appearance. Follow-up nonemergent PA and lateral views of the chest with nipple markers can be performed for further evaluation. Electronically signed by: Luis Eduardo Hirsch M.D. 04/07/2016 9:48 PM Dictated Date/Time: 04/07/2016 9:44 PM
[2016-04-07 23:28] VITALS: BP 122/76; PULSE 70; TEMP 36.6; O2SAT 94
[2016-04-08 06:25] LABS: BASO % 0.3 %; BASO ABS # 0.02 K/uL (0-0.2); COMPLETE YES; EOS % 4.8 %; HEMATOCRIT 33.3 % (42-52); IG% 0.3 %; LYMPH % 24.1 %; MEAN CELL VOLUME 90.7 fL (80-100); MEAN CORPUSCULAR HEMOGLOBIN 31.1 pg (25-34); MEAN CORPUSCULAR HGB CONC 34.2 g/dl (32-36); MEAN PLATELET VOLUME 10.1 fL (7.4-10.4); MONO % 9.8 %; NEUT % 60.7 %; PLATELET COUNT 134 K/uL (130-400); RED BLOOD COUNT 3.67 M/uL (4.7-6.1); WHITE BLOOD COUNT 5.81 K/uL (4.8-10.8)
[2016-04-08] MEDS: LEVOTHYROXINE 25 MCG TAB PO SCH (06:31)
[2016-04-08 06:58] LABS: BUN/CREATININE RATIO 7.8 (10-20); CALCIUM 7.9 mg/dl (8.5-10.1); CREATININE 1.9 mg/dl (0.60-1.40); POTASSIUM 3.6 mmol/L (3.5-5.1)
[2016-04-08] MEDS: MIRTAZAPINE SOLTAB 15 MG PO SCH (07:13)
[2016-04-08 07:53] VITALS: BP 131/80; PULSE 55; TEMP 36.8; O2SAT 100
[2016-04-08] MEDS: INSULIN ASPART 100 UNITS/ML 3 ML PEN SC SCH ×4 (08:05→20:51)
[2016-04-08] MEDS: SODIUM CHLORIDE 0.9% 1000ML 1,000 ML IV SCH ×2 (08:09→20:51)
[2016-04-08] MEDS: PIPERACILL/TAZOBAC IV 3.375 GM in DEXTROSE 5% 100ML IV SCH ×2 (08:09→15:49)
--- NOTE | 2016-04-08 09:46 | Nephrology Progress Note ---
Nephrology Progress Note Date of Service: Apr 08, 2016. 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; when asked directly states we are in "[facility];" denies pain or anxiety Objective Date Time Temp Pulse Resp B/P Pulse Ox O2 Delivery O2 Flow Rate FiO2 04/08/16 08:00 Room Air 04/08/16 07:53 36.8 55 16 131/80 100 2.0 04/08/16 00:00 Room Air 04/07/16 23:28 36.6 70 20 122/76 94 Room Air 04/07/16 16:06 36.5 75 18 126/80 97 Room Air 04/07/16 16:00 97 Room Air Physical Exam: General-on ra, lying flat, confused, lethargic, oriented to self only Eyes-eyes closed for duration of exam; did not apply noxious stimuli to get him to open them ENT-dry mm Lungs-diminished on anterior exam Heart-RRR; no edema Abdomen-distended soft NT +BS Extremities-no c/c Neuro-gaines, fluent but incoherent speech; fumbling/ tremulous/ ? picking Current Inpatient Medications Medications (Trade) Dose Ordered Sig/Bob Route Start Time Stop Time Status Last Admin Dose Admin Acetaminophen (Tylenol Tab) 650 mg Q4H PRN PO 04/04/16 16:15 05/04/16 16:14 04/05/16 23:26 650 MG Ondansetron HCl (Zofran Inj) 4 mg Q6H PRN IV 04/04/16 16:15 05/04/16 16:14 Levothyroxine Sodium (Synthroid Tab) 25 mcg DAILYBB PO 04/05/16 06:30 05/05/16 06:59 04/08/16 06:31 25 MCG Warfarin Sodium (Coumadin Tab) 2 mg TuTh@1600 PO 04/08/16 16:00 05/08/16 15:59 Warfarin Sodium (Coumadin Tab) 9 mg SuMoWeFrSa@1600 PO 04/04/16 21:00 05/04/16 20:59 04/07/16 15:37 9 MG Warfarin Sodium (Coumadin Tab) 5 mg TuTh@1600 PO 04/08/16 16:00 05/08/16 15:59 Mirtazapine (Remeron Solutab) 30 mg DAILY PO 04/05/16 09:00 05/05/16 08:59 04/08/16 07:13 30 MG Insulin Aspart (novoLOG ASPART) SLIDING SCALE If C... ACHS SC 04/04/16 21:00 05/04/16 20:59 04/06/16 13:02 1 UNITS Glucose (Glucose 40% Gel) 15-30 GRAMS 15 GRAMS... UD PRN PO 04/04/16 16:15 05/04/16 16:14 Glucose (Glucose Chew Tab) 4-8 Tablets 4 Tabl... UD PRN PO 04/04/16 16:15 05/04/16 16:14 Dextrose (Dextrose 50% 50ML Syringe) 25-50ML OF 50% DW IV FOR... UD PRN IV 04/04/16 16:15 05/04/16 16:14 Glucagon 1 mg 1 mg UD PRN SQ 04/04/16 16:15 05/04/16 16:14 Sodium Chloride (Nss 1000ml) 1,000 ml @ 80 mls/hr [id number] IV 04/04/16 16:15 05/04/16 16:14 04/08/16 08:09 80 MLS/HR Piperacillin Sod/ Tazobactam Sod 1 ea 1 ea UD PRN N/A 04/05/16 14:30 05/05/16 14:29 Piperacillin Sod/ Tazobactam Sod/ Dextrose (Zosyn Iv/D5 100ml) 115 ml @ 28.75 mls/ hr Q8H IV 04/05/16 16:00 04/15/16 15:59 04/08/16 08:09 28.75 MLS/HR Last 24 Hours Test 04/07/16 10:30 04/07/16 11:29 04/07/16 16:37 04/07/16 20:00 Sodium Level 141 mmol/L Potassium Level 3.9 mmol/L Chloride Level 109 mmol/L Carbon Dioxide Level 21 mmol/L Anion Gap 11.0 mmol/L Blood Urea Nitrogen 21 mg/dl Creatinine 1.90 mg/dl Est Creatinine Clear Calc Drug Dose 29.3 ml/min Estimated GFR () 36.4 Estimated GFR (Non- 31.4 BUN/Creatinine Ratio 10.8 Random Glucose 126 mg/dl Calcium Level 8.1 mg/dl Bedside Glucose 130 mg/dl 123 mg/dl 128 mg/dl Test 04/08/16 06:03 04/08/16 07:50 White Blood Count 5.81 K/uL Red Blood Count 3.67 M/uL Hemoglobin 11.4 g/dL Hematocrit 33.3 % Mean Corpuscular Volume 90.7 fL Mean Corpuscular Hemoglobin 31.1 pg Mean Corpuscular Hemoglobin Concent 34.2 g/dl Platelet Count 134 K/uL Mean Platelet Volume 10.1 fL Neutrophils (%) (Auto) 60.7 % Lymphocytes (%) (Auto) 24.1 % Monocytes (%) (Auto) 9.8 % Eosinophils (%) (Auto) 4.8 % Basophils (%) (Auto) 0.3 % Neutrophils # (Auto) 3.52 K/uL Lymphocytes # (Auto) 1.40 K/uL Monocytes # (Auto) 0.57 K/uL Eosinophils # (Auto) 0.28 K/uL Basophils # (Auto) 0.02 K/uL RDW Standard Deviation 44.4 fL RDW Coefficient of Variation 13.5 % Immature Granulocyte % (Auto) 0.3 % Immature Granulocyte # (Auto) 0.02 K/uL Sodium Level 140 mmol/L Potassium Level 3.6 mmol/L Chloride Level 108 mmol/L Carbon Dioxide Level 21 mmol/L Anion Gap 11.0 mmol/L Blood Urea Nitrogen 15 mg/dl Creatinine 1.90 mg/dl Est Creatinine Clear Calc Drug Dose 29.3 ml/min Estimated GFR () 36.4 Estimated GFR (Non- 31.4 BUN/Creatinine Ratio 7.8 Random Glucose 122 mg/dl Calcium Level 7.9 mg/dl Bedside Glucose 109 mg/dl Assessment & Plan 85 y/o M admitted 04/03 w/ weakness, confusion, hypotension, MAURIZIO on CKD ( presenting creatinine 3) and fever. Has extensive sinus disease on CT scan; else no infection source found. Creatinine has slowly responded to hydration and is trending back toward baseline of 1.5-1.6 from 09/2014-10/2015. No recent medication changes. Past hx of orthostatic hypotension. mild anemia, stable. MAURIZIO on CKD 3 ATN attributed to hypotension, to febrile illness; doubt rhabdomyolysis given lab profile. creatinine stable past 48 hrs at 1.9 -cont to hold acei, diuretic >> may not need these at d/c -check orthostatic bp, hr and PT eval if he can get out of bed -recheck ck w/ labs tomorrow> ordered -reasonable to continue current NS at 80 mL hourly as it is not clear to me how much he is eating -daily bmp while in house altered mental status -new/worse today, though I have little experience w/ this pt > will alert hospitalist; no respiratory distress or F or new leukocytosis; may need to review meds Febrile illness/ hypotension at admission, w/ F resolved > sinusitis is likeliest cause no evidence of cardiac issues contributing to lower bp; on zosyn L basilar crackles on 04/07 -posterior lung exam not done today > XR clear; cont NS -no evidence of volume overload but valvular hf hx noted Appreciate consult; will follow with you. Will coordinate care w/ Dr. Chandler
[2016-04-08 15:39] VITALS: BP 139/66; PULSE 77; TEMP 36.8; O2SAT 97
[2016-04-08] MEDS ORDERED: WARFARIN SOD 2 MG TAB PO SCH (16:00)
[2016-04-08] MEDS ORDERED: WARFARIN SOD 5 MG TAB PO SCH (16:00)
--- NOTE | 2016-04-08 19:16 | Progress Note ---
Medicine Progress Note Date & Time of Visit: Apr 08, 2016 at 19:15. Subjective Patient denies any complaints other than wanting to go home. No overnight events noted. This AM was found to be more drowsy and confused per other providers. He was seen later in the day and was working with therapy and ambulating with a walker. Appetite has been fair. No other events noted. Objective Last 8 Hrs Date Time Temp Pulse Resp B/P Pulse Ox O2 Delivery O2 Flow Rate FiO2 04/08/16 16:00 Room Air 04/08/16 15:39 36.8 77 16 139/66 97 Room Air Physical Exam: GENERAL: Patient is in no acute distress. HEENT: No acute trauma, normocephalic, mucous membranes moist, no nasal congestion, no scleral icterus. NECK: No stridor, trachea is midline. LUNGS: Clear to auscultation bilaterally, no wheeze, no rhonchi, breath sounds equal. HEART: Without murmurs gallops or rubs, regular rate and rhythm. ABDOMEN: Soft, nontender, bowel sounds positive EXTREMITIES: No cyanosis or edema NEUROLOGIC: Oriented x 3, no acute motor or sensory deficits, no focal weakness. SKIN: No rash, no jaundice, no diaphoresis. Laboratory Results: Last 24 Hours Test 04/07/16 20:00 04/08/16 06:03 04/08/16 07:50 04/08/16 11:27 Bedside Glucose 128 mg/dl 109 mg/dl 166 mg/dl White Blood Count 5.81 K/uL Red Blood Count 3.67 M/uL Hemoglobin 11.4 g/dL Hematocrit 33.3 % Mean Corpuscular Volume 90.7 fL Mean Corpuscular Hemoglobin 31.1 pg Mean Corpuscular Hemoglobin Concent 34.2 g/dl Platelet Count 134 K/uL Mean Platelet Volume 10.1 fL Neutrophils (%) (Auto) 60.7 % Lymphocytes (%) (Auto) 24.1 % Monocytes (%) (Auto) 9.8 % Eosinophils (%) (Auto) 4.8 % Basophils (%) (Auto) 0.3 % Neutrophils # (Auto) 3.52 K/uL Lymphocytes # (Auto) 1.40 K/uL Monocytes # (Auto) 0.57 K/uL Eosinophils # (Auto) 0.28 K/uL Basophils # (Auto) 0.02 K/uL RDW Standard Deviation 44.4 fL RDW Coefficient of Variation 13.5 % Immature Granulocyte % (Auto) 0.3 % Immature Granulocyte # (Auto) 0.02 K/uL Sodium Level 140 mmol/L Potassium Level 3.6 mmol/L Chloride Level 108 mmol/L Carbon Dioxide Level 21 mmol/L Anion Gap 11.0 mmol/L Blood Urea Nitrogen 15 mg/dl Creatinine 1.90 mg/dl Est Creatinine Clear Calc Drug Dose 29.3 ml/min Estimated GFR () 36.4 Estimated GFR (Non- 31.4 BUN/Creatinine Ratio 7.8 Random Glucose 122 mg/dl Calcium Level 7.9 mg/dl Test 04/08/16 16:34 Bedside Glucose 136 mg/dl Assessment & Plan ACUTE RENAL FAILURE ON CKD STAGE III: -Cr was 3 from baseline of 1.5, BUN 60 -Likely secondary to dehydration -improving now following IV fluids -renal US: no hydronephrosis, (+) enlarged prostate -on IV fluids with NSS at 80cc /hr -hold Lisinopril, and Lasix for now -improving 3--> 2.3--> 2.1--> 1.9 -will need outpatient Urology eval for enlarged prostate -Nephrology consulted, appreciate Dr. Sellers's input GENERALIZED WEAKNESS: -likely secondary to dehydration, Sinusitis infection -CT head: complete opacification of sinuses -Blood cultures: negative -Urine: gamma strep, not enterococcus -Influenza negative -on Zosyn IV Day 3 for Sinusitis -on IV fluids HALLUCINATIONS, [facility] DEL[facility]: -monitor ELEVATED CPK: -2700--> improving -still on IV fluids -hold Statin ATRIAL FIBRILLATION: -rate in the 80s -continue Coumadin HYPERLIPIDEMIA: -hold statin for elevated CK HTN: -marginal on admisison, secondary to dehydration, improved with IVFs -held Lisinopril and Lasix DIASTOLIC CHF: -last echo with Grade II diastolic dysfunction and valvular disease -hold Lasix -cautious IVF hydration EMELY: -continue CPAP DM Type II: -HbA1c: 8.4 -hold glipizide -SSI coverage -BSG AC HS -consistent carb diet HYPOTHYROIDISM: -continue Synthroid INSOMNIA: -continue Remeron COGNITIVE IMPAIRMENT/DIFFICULTY WITH MEMORY: -no formal diagnosis of dementia -was living at home alone with hospice patient care secretary 2 days a week, needs 24 hour supervision and cannot return home alone -discharge planning eval placed, awaiting approval Current Inpatient Medications: Current Inpatient Medications Medications (Trade) Dose Ordered Sig/Bob Route Start Time Stop Time Status Last Admin Dose Admin Acetaminophen (Tylenol Tab) 650 mg Q4H PRN PO 04/04/16 16:15 05/04/16 16:14 04/05/16 23:26 650 MG Ondansetron HCl (Zofran Inj) 4 mg Q6H PRN IV 04/04/16 16:15 05/04/16 16:14 Levothyroxine Sodium (Synthroid Tab) 25 mcg DAILYBB PO 04/05/16 06:30 05/05/16 06:59 04/08/16 06:31 25 MCG Warfarin Sodium (Coumadin Tab) 2 mg TuTh@1600 PO 04/08/16 16:00 05/08/16 15:59 04/08/16 15:49 2 MG Warfarin Sodium (Coumadin Tab) 9 mg SuMoWeFrSa@1600 PO 04/04/16 21:00 05/04/16 20:59 04/07/16 15:37 9 MG Warfarin Sodium (Coumadin Tab) 5 mg TuTh@1600 PO 04/08/16 16:00 05/08/16 15:59 04/08/16 15:48 5 MG Mirtazapine (Remeron Solutab) 30 mg DAILY PO 04/05/16 09:00 05/05/16 08:59 04/08/16 07:13 30 MG Insulin Aspart (novoLOG ASPART) SLIDING SCALE If C... ACHS SC 04/04/16 21:00 05/04/16 20:59 04/08/16 17:10 1 UNITS Glucose (Glucose 40% Gel) 15-30 GRAMS 15 GRAMS... UD PRN PO 04/04/16 16:15 05/04/16 16:14 Glucose (Glucose Chew Tab) 4-8 Tablets 4 Tabl... UD PRN PO 04/04/16 16:15 05/04/16 16:14 Dextrose (Dextrose 50% 50ML Syringe) 25-50ML OF 50% DW IV FOR... UD PRN IV 04/04/16 16:15 05/04/16 16:14 Glucagon 1 mg 1 mg UD PRN SQ 04/04/16 16:15 05/04/16 16:14 Sodium Chloride (Nss 1000ml) 1,000 ml @ 80 mls/hr [id number] IV 04/04/16 16:15 05/04/16 16:14 04/08/16 08:09 80 MLS/HR Piperacillin Sod/ Tazobactam Sod 1 ea 1 ea UD PRN N/A 04/05/16 14:30 05/05/16 14:29 Piperacillin Sod/ Tazobactam Sod/ Dextrose (Zosyn Iv/D5 100ml) 115 ml @ 28.75 mls/ hr Q8H IV 04/05/16 16:00 04/15/16 15:59 04/08/16 15:49 28.75 MLS/HR
[2016-04-08 22:53] VITALS: BP 145/78; PULSE 73; TEMP 36.8; O2SAT 92
[2016-04-09] MEDS: PIPERACILL/TAZOBAC IV 3.375 GM in DEXTROSE 5% 100ML IV SCH ×2 (00:27→08:00)
[2016-04-09] MEDS: LEVOTHYROXINE 25 MCG TAB PO SCH (06:03)
[2016-04-09 06:50] LABS: BASO % 0.4 %; BASO ABS # 0.02 K/uL (0-0.2); COMPLETE YES; EOS % 3.2 %; HEMATOCRIT 31.5 % (42-52); IG% 0.2 %; LYMPH ABS # 1.13 K/uL (1.2-3.4); MEAN CELL VOLUME 90.5 fL (80-100); MEAN CORPUSCULAR HGB CONC 34.3 g/dl (32-36); MEAN PLATELET VOLUME 10.4 fL (7.4-10.4); NEUT % 70.2 %; PLATELET COUNT 139 K/uL (130-400); RED BLOOD COUNT 3.48 M/uL (4.7-6.1); WHITE BLOOD COUNT 5.66 K/uL (4.8-10.8)
[2016-04-09 06:55] LABS: INR 3.3 (0.9-1.1); PROTHROMBIN TIME (PATIENT) 36.8 SECONDS (9.0-12.0)
[2016-04-09 07:11] VITALS: BP 157/71; PULSE 69; TEMP 36.7; O2SAT 92
[2016-04-09 07:20] LABS: BUN/CREATININE RATIO 7.4 (10-20); CALCIUM 8.1 mg/dl (8.5-10.1); CREATININE 1.7 mg/dl (0.60-1.40); POTASSIUM 3.5 mmol/L (3.5-5.1)
[2016-04-09] MEDS: MIRTAZAPINE SOLTAB 15 MG PO SCH (08:01)
[2016-04-09] MEDS: INSULIN ASPART 100 UNITS/ML 3 ML PEN SC SCH ×4 (08:58→21:34)
[2016-04-09] MEDS: SODIUM CHLORIDE 0.9% 1000ML 1,000 ML IV SCH ×2 (09:41→21:40)
[2016-04-09 15:57] VITALS: BP 131/74; PULSE 70; TEMP 36.1; O2SAT 98
[2016-04-09 16:00] VITALS: O2SAT 98
[2016-04-09] MEDS: AMOXICILLIN/CLAVULANATE TAB 875 MG TAB PO SCH (17:08)
--- NOTE | 2016-04-09 17:47 | Progress Note ---
Medicine Progress Note Date & Time of Visit: Apr 09, 2016 at 17:46. Subjective Patient denies any complaints. Laying in bed but did participate with therapy earlier today. No overnight events noted. Tolerating PO. Objective Last 8 Hrs Date Time Temp Pulse Resp B/P Pulse Ox O2 Delivery O2 Flow Rate FiO2 04/09/16 15:57 36.1 70 18 131/74 98 Room Air Physical Exam: GENERAL: Patient is in no acute distress. HEENT: No acute trauma, normocephalic, mucous membranes moist, no nasal congestion, no scleral icterus. NECK: No stridor, trachea is midline. LUNGS: Clear to auscultation bilaterally, no wheeze, no rhonchi, breath sounds equal. HEART: Without murmurs gallops or rubs, regular rate and rhythm. ABDOMEN: Soft, nontender, bowel sounds positive EXTREMITIES: No cyanosis or edema NEUROLOGIC: Oriented x 3, no acute motor or sensory deficits, no focal weakness. SKIN: No rash, no jaundice, no diaphoresis. Laboratory Results: Last 24 Hours Test 04/08/16 19:54 04/09/16 05:55 04/09/16 07:42 04/09/16 11:37 Bedside Glucose 140 mg/dl 108 mg/dl 135 mg/dl White Blood Count 5.66 K/uL Red Blood Count 3.48 M/uL Hemoglobin 10.8 g/dL Hematocrit 31.5 % Mean Corpuscular Volume 90.5 fL Mean Corpuscular Hemoglobin 31.0 pg Mean Corpuscular Hemoglobin Concent 34.3 g/dl Platelet Count 139 K/uL Mean Platelet Volume 10.4 fL Neutrophils (%) (Auto) 70.2 % Lymphocytes (%) (Auto) 20.0 % Monocytes (%) (Auto) 6.0 % Eosinophils (%) (Auto) 3.2 % Basophils (%) (Auto) 0.4 % Neutrophils # (Auto) 3.98 K/uL Lymphocytes # (Auto) 1.13 K/uL Monocytes # (Auto) 0.34 K/uL Eosinophils # (Auto) 0.18 K/uL Basophils # (Auto) 0.02 K/uL RDW Standard Deviation 45.3 fL RDW Coefficient of Variation 13.8 % Immature Granulocyte % (Auto) 0.2 % Immature Granulocyte # (Auto) 0.01 K/uL Prothrombin Time 36.8 SECONDS Prothromb Time International Ratio 3.3 Sodium Level 140 mmol/L Potassium Level 3.5 mmol/L Chloride Level 110 mmol/L Carbon Dioxide Level 18 mmol/L Anion Gap 12.0 mmol/L Blood Urea Nitrogen 13 mg/dl Creatinine 1.70 mg/dl Est Creatinine Clear Calc Drug Dose 32.8 ml/min Estimated GFR () 41.7 Estimated GFR (Non- 36.0 BUN/Creatinine Ratio 7.4 Random Glucose 111 mg/dl Calcium Level 8.1 mg/dl Total Creatine Kinase 395 U/L Test 04/09/16 16:45 Bedside Glucose 118 mg/dl Assessment & Plan ACUTE RENAL FAILURE ON CKD STAGE III: -Cr was 3 from baseline of 1.5, BUN 60 -Likely secondary to dehydration -improving now following IV fluids -renal US: no hydronephrosis, (+) enlarged prostate -on IV fluids with NSS at 80cc /hr -hold Lisinopril, and Lasix for now -improving 3--> 2.3--> 2.1--> 1.9-->1.7 -will need outpatient Urology eval for enlarged prostate -Nephrology consulted, appreciate Dr. Sellers's input GENERALIZED WEAKNESS: -likely secondary to dehydration, Sinusitis infection -CT head: complete opacification of sinuses -Blood cultures: negative -Urine: gamma strep, not enterococcus -Influenza negative -on Zosyn IV for Sinusitis, switched to PO augmentin for remainder of days to complete 10 day course -on IV fluids HALLUCINATIONS, [facility] DEL[facility]: -monitor ELEVATED CPK: -was 2700, now improved -still on IV fluids -hold Statin for now, may resume on D/C and recheck labs as outpatient ATRIAL FIBRILLATION: -rate in the 80s -continue Coumadin; held today for supratherapeutic INR HYPERLIPIDEMIA: -hold statin for elevated CK for now HTN: -marginal on admisison, secondary to dehydration, improved with IVFs -held Lisinopril and Lasix DIASTOLIC CHF: -last echo with Grade II diastolic dysfunction and valvular disease -hold Lasix -cautious IVF hydration EMELY: -continue CPAP DM Type II: -HbA1c: 8.4% -hold glipizide -SSI coverage -BSG AC HS -consistent carb diet HYPOTHYROIDISM: -continue Synthroid INSOMNIA: -continue Remeron COGNITIVE IMPAIRMENT/DIFFICULTY WITH MEMORY: -no formal diagnosis of dementia -was living at home alone with care management specialist 2 days a week, needs 24 hour supervision and cannot return home alone -discharge planning eval placed, awaiting approval Current Inpatient Medications: Current Inpatient Medications Medications (Trade) Dose Ordered Sig/Bob Route Start Time Stop Time Status Last Admin Dose Admin Acetaminophen (Tylenol Tab) 650 mg Q4H PRN PO 04/04/16 16:15 05/04/16 16:14 04/05/16 23:26 650 MG Ondansetron HCl (Zofran Inj) 4 mg Q6H PRN IV 04/04/16 16:15 05/04/16 16:14 Levothyroxine Sodium (Synthroid Tab) 25 mcg DAILYBB PO 04/05/16 06:30 05/05/16 06:59 04/09/16 06:03 25 MCG Warfarin Sodium (Coumadin Tab) 2 mg TuTh@1600 PO 04/08/16 16:00 05/08/16 15:59 04/08/16 15:49 2 MG Warfarin Sodium (Coumadin Tab) 9 mg SuMoWeFrSa@1600 PO 04/04/16 21:00 05/04/16 20:59 Future Hold 04/07/16 15:37 9 MG Warfarin Sodium (Coumadin Tab) 5 mg TuTh@1600 PO 04/08/16 16:00 05/08/16 15:59 04/08/16 15:48 5 MG Mirtazapine (Remeron Solutab) 30 mg DAILY PO 04/05/16 09:00 05/05/16 08:59 04/09/16 08:01 30 MG Insulin Aspart (novoLOG ASPART) SLIDING SCALE If C... ACHS SC 04/04/16 21:00 05/04/16 20:59 04/08/16 17:10 1 UNITS Glucose (Glucose 40% Gel) 15-30 GRAMS 15 GRAMS... UD PRN PO 04/04/16 16:15 05/04/16 16:14 Glucose (Glucose Chew Tab) 4-8 Tablets 4 Tabl... UD PRN PO 04/04/16 16:15 05/04/16 16:14 Dextrose (Dextrose 50% 50ML Syringe) 25-50ML OF 50% DW IV FOR... UD PRN IV 04/04/16 16:15 05/04/16 16:14 Glucagon 1 mg 1 mg UD PRN SQ 04/04/16 16:15 05/04/16 16:14 Sodium Chloride (Nss 1000ml) 1,000 ml @ 80 mls/hr [id number] IV 04/04/16 16:15 05/04/16 16:14 04/09/16 09:41 80 MLS/HR Amoxicillin/ Clavulanate Potassium (Augmentin Tab) 875 mg BIDM PO 04/09/16 17:00 04/16/16 08:01 04/09/16 17:08 875 MG
[2016-04-10 00:20] VITALS: BP 148/75; PULSE 69; TEMP 36.7; O2SAT 94
[2016-04-10] MEDS: LEVOTHYROXINE 25 MCG TAB PO SCH (06:32)
[2016-04-10 07:23] LABS: BASO % 0.1 %; BASO ABS # 0.01 K/uL (0-0.2); COMPLETE YES; EOS % 2.7 %; HEMATOCRIT 31.1 % (42-52); IG% 0.1 %; LYMPH % 10.9 %; LYMPH ABS # 0.82 K/uL (1.2-3.4); MEAN CELL VOLUME 89.4 fL (80-100); MEAN CORPUSCULAR HEMOGLOBIN 31.9 pg (25-34); MEAN CORPUSCULAR HGB CONC 35.7 g/dl (32-36); MEAN PLATELET VOLUME 9.8 fL (7.4-10.4); MONO % 9.1 %; NEUT % 77.1 %; PLATELET COUNT 150 K/uL (130-400); RED BLOOD COUNT 3.48 M/uL (4.7-6.1)
[2016-04-10 07:52] VITALS: BP 160/87; PULSE 70; TEMP 36.8; O2SAT 95
[2016-04-10 07:57] LABS: BUN/CREATININE RATIO 8.9 (10-20); CALCIUM 8.1 mg/dl (8.5-10.1); CREATININE 1.4 mg/dl (0.60-1.40); POTASSIUM 3.4 mmol/L (3.5-5.1)
[2016-04-10] MEDS: AMOXICILLIN/CLAVULANATE TAB 875 MG TAB PO SCH (08:22)
[2016-04-10] MEDS: MIRTAZAPINE SOLTAB 15 MG PO SCH (08:22)
[2016-04-10] MEDS: INSULIN ASPART 100 UNITS/ML 3 ML PEN SC SCH ×2 (08:28→12:52)
[2016-04-10] MEDS: SODIUM CHLORIDE 0.9% 1000ML 1,000 ML IV SCH (09:38)
[2016-04-10 10:05] LABS: INR 2.9 (0.9-1.1); PROTHROMBIN TIME (PATIENT) 31.9 SECONDS (9.0-12.0)
[2016-04-10] MEDS ORDERED: FURO-85 PO (13:24)
[2016-04-10] MEDS ORDERED: AMOX1TAB43 PO (13:24)
--- NOTE | 2016-04-10 13:33 | Discharge Instructions ---
Discharge Instructions Admission Reason for Admission: Acute Renal Failure, Dehydration Discharge Discharge Diagnosis / Problem: Acute renal failure Discharge Goals Goal(s): Therapeutic intervention Activity Recommendations Activity Level: Assistance Required Therapies: Physical Therapy, Occupational Therapy . Additional Information Patient informed of condition: Yes Advance Directives: No DNR: No Level of Care: Acute Rehab Communicable Disease: No Prognosis: Stable [place] Catheter: No Instructions / Follow-Up Instructions / Follow-Up BSG AC and HS Daily weights Encourage oral intake of water/fluids Follow up with PCP in 4-6 days Current Hospital Diet Patient's current hospital diet: Diabetes Type 2 Diet Discharge Diet Recommended Diet: Diabetes Type 2 Diet Pending Studies Studies pending at discharge: no Laboratory Results Hemoglobin A1c Test 04/05/16 06:38 Range/Units Estimated Average Glucose 194 mg/dl Hemoglobin A1c 8.4 H 4.5-5.6 % Medical Emergencies . Who to Call and When: Medical Emergencies: If at any time you feel your situation is an emergency, please call 911 immediately. . Non-Emergent Contact Non-Emergency issues call your: Primary Care Provider . . "Provider Documentation" section prepared by Iveth Chandler. Core Measure Problem Core Measures: None
[2016-04-10 13:34] VITALS: BP 160/87; PULSE 70; TEMP 36.8; O2SAT 95
--- NOTE | 2016-04-10 13:44 | Discharge Summary ---
Discharge Summary Admission Date: Apr 04, 2016 at 16:05 Discharge Date: Apr 10, 2016 Discharge Disposition: Rehab Principal Diagnosis: ARF, sinusitis, UTI Pending Studies/Follow-Up: Please check CPK, BMP, PT/INR and CBC in 1 week Medication Reconciliation New Medications: Amoxicillin & Pot Clavulanate (Amoxicillin/Clavulanate P) 1 Tab Tab 875 MG PO BIDM, #12 TAB Changed Medications: Furosemide (Lasix) 20 Mg Tab 20 MG PO Q2D, #30 TAB (Changed from: DAILY) Continued Medications: Glipizide (Glucotrol) 5 Mg Tab 5 MG PO DAILY, TAB take before a meal Levothyroxine Sodium (Levothyroxine Sodium) 25 Mcg Tab 25 MCG PO DAILY for 30 Days, #30 TAB 5 Refills Lisinopril (Zestril) 5 Mg Tab 1.25 MG PO DAILY, TAB PT TAKES 1/2 OF A 2.5MG TAB Mirtazapine Soltab (Remeron Soltab) 30 Mg Soltab 30 MG PO DAILY, TAB Simvastatin (Zocor) 40 Mg Tab 40 MG PO DAILY, TAB Warfarin Sod (Jantoven) 3 Mg Tab 9 MG PO 5XWK, TAB Warfarin Sod (Jantoven) 5 Mg Tab 5 MG PO 2XWK, TAB TAKE ALONG WITH 2MG TAB TO EQUAL 7MG ON TUESDAYS & THURSDAYS Warfarin Sod (Jantoven) 2 Mg Tab 2 MG PO 2XWK, TAB TAKE ALONG WITH 5MG TAB TO EQUAL 7MG ON TUESDAYS AND THURSDAYS Admission Information HPI (per Admitting provider): Patient seen and examined. 85 year old male with PMHx of Afib on Coumadin, HTN, HLD, DM2, hypothyroidism, CKD stage 3, Diastolic CHF and memory issues presents to the ED complaining of dizziness x 1 week. History is somewhat unclear as patient has memory issues and lives alone. Daughter is at bedside who helps provide additional information. Patient reports that he started getting dizzy about a week ago and objects seemed to be moving around him. He fell in the bathroom several days ago and he isn't sure why, but was able to get up without help since he was alone. He fell out of bed last night. He reports he feels very cold, weak and shaky. Daughter reports that he seems more confused than normal and needed help dressing himself this morning which isn't something that he normally needs help with. He does not remember if he has been eating and drinking well. He denies fevers, syncope, URI symptoms, chest pain, SOB, nausea , vomiting, diarrhea, dysuria, calf pain and edema. Today the patient's daughter went to see him because he said he didn't feel good. Per daughter the patients SBP was in the 80s so she brought him to the ED for further evaluation. In the ED BP is borderline hypotensive, CT head is negative, crea is 3 from baseline of 1.5, CK is 2700. He received IVFs and zosyn. He will be admitted for further workup and treatment. Physical Exam (per Admitting): General Appearance: + pertinent finding (WD/WM elderly appearing 85 year old male lying in bed in NAD with daughter at bedside ) Head: normocephalic, atraumatic Eyes: EOMI, sclerae normal ENT: hearing grossly normal, pharynx normal Neck: supple, no JVD, trachea midline Respiratory/Chest: chest non-tender, lungs clear, normal breath sounds, no respiratory distress, no accessory muscle use Cardiovascular: no edema, no gallop, no JVD, no murmur, normal peripheral pulses, + irregularly irregular (rate in the 80s) Abdomen/GI: normal bowel sounds, non tender, soft Back: normal inspection, no muscle spasm Extremities/Musculoskelatal: no calf tenderness, normal capillary refill, no pedal edema Neurologic/Psych: + pertinent finding (A&Ox3, forgetful,otherwise no motor or sensory deficits noted ) Skin: normal color, warm/dry, no rash Lymphatic: no adenopathy Hospital Course ACUTE RENAL FAILURE ON CKD STAGE III: -Cr was 3 from baseline of 1.5, BUN 60 -Likely secondary to dehydration -improving now following IV fluids -renal US: no hydronephrosis, (+) enlarged prostate -on IV fluids with NSS at 80cc /hr -hold Lisinopril, and Lasix for now -improving 3--> 2.3--> 2.1--> 1.9-->1.7-->1.4 -will need outpatient Urology eval for enlarged prostate, has been voiding without difficulty -Nephrology consulted, appreciate Dr. Sellers's input GENERALIZED WEAKNESS: -likely secondary to dehydration, Sinusitis infection -CT head: complete opacification of sinuses -Blood cultures: negative -Urine: gamma strep, not enterococcus -Influenza negative -on Zosyn IV for Sinusitis, switched to PO augmentin for remainder of days to complete 10 day course -on IV fluids, stop upon D/C and encourage PO fluids HALLUCINATIONS, [facility] DELIRIUM: -monitor ELEVATED CPK: -was 2700, now improved -still on IV fluids -hold Statin for now, may resume on D/C and recheck labs (CPK) as outpatient ATRIAL FIBRILLATION: -rate in the 80s -continue Coumadin; held for supratherapeutic INR, now resumed HYPERLIPIDEMIA: -hold statin for elevated CK for now HTN: -marginally low BP on admission, secondary to dehydration, improved with IVFs -held Lisinopril and Lasix DIASTOLIC CHF: -last echo with Grade II diastolic dysfunction and valvular disease -held Lasix, resume low dose upon discharge -cautious IVF hydration EMELY: -continue CPAP DM Type II: -HbA1c: 8.4% -hold glipizide -SSI coverage -BSG AC HS -consistent carb diet HYPOTHYROIDISM: -continue Synthroid INSOMNIA: -continue Remeron COGNITIVE IMPAIRMENT/DIFFICULTY WITH MEMORY: -no formal diagnosis of dementia -was living at home alone with palliative care coordinator 2 days a week, but needs 24 hour supervision and cannot return home alone PHYSICAL EXAM ON DAY OF DISCHARGE: GENERAL: Patient is in no acute distress. HEENT: No acute trauma, normocephalic, mucous membranes moist, no nasal congestion, no scleral icterus. NECK: No stridor, trachea is midline. LUNGS: Clear to auscultation bilaterally, no wheeze, no rhonchi, breath sounds equal. HEART: Without murmurs gallops or rubs, regular rate and rhythm. ABDOMEN: Soft, nontender, bowel sounds positive EXTREMITIES: No cyanosis or edema NEUROLOGIC: Oriented, no acute motor or sensory deficits, no focal weakness. SKIN: No rash, no jaundice, no diaphoresis. Total time spent on discharge = 41 This includes examination of the patient, discharge planning, medication reconciliation, and communication with other providers. Discharge Instructions see patient instructions Additional Copies To Landy Paige M.D.
== END 2016-04-10 14:05 | DRG 683 ==
LOC: ENRESERVTM → ENRESERVDT → C.EDB 13:11 → C.MS2W 16:05
PROVIDERS: ADMIT Internal Medicine; ATTEND Internal Medicine
DX: N17.0 Acute kidney failure with tubular necrosis (principal); I50.32 Chronic diastolic (congestive) heart failure; R44.2 Other hallucinations; N39.0 Urinary tract infection, site not specified; I34.1 Nonrheumatic mitral (valve) prolapse; E11.9 Type 2 diabetes mellitus without complications; E03.9 Hypothyroidism, unspecified; E78.5 Hyperlipidemia, unspecified; J32.9 Chronic sinusitis, unspecified; I48.0 Paroxysmal atrial fibrillation; E86.0 Dehydration; I12.9 Hypertensive chronic kidney disease with stage 1 through stage 4 chronic kidney disease, or unspecified chronic kidney disease; N18.3 Chronic kidney disease, stage 3 (moderate); G47.33 Obstructive sleep apnea (adult) (pediatric); G47.00 Insomnia, unspecified; I95.9 Hypotension, unspecified; Z79.01 Long term (current) use of anticoagulants; Z86.73 Personal history of transient ischemic attack (TIA), and cerebral infarction without residual deficits

== ENCOUNTER → 2016-05-02 | Outpatient (CLI) | payer BC ==
[~2016-05-02] MED LIST changes: +AMOX1TAB43 PO; -CMD5 PO; +FURO-85 PO; +MIRT30TA2 PO; -MULT-190 PO; -TCMD2 PO; +WARF2TAB8 PO; +WARF3TAB6 PO; +WARF5TAB7 PO
[2016-05-02 10:18] LABS: INR 1.2 (0.9-1.1); PROTHROMBIN TIME (PATIENT) 12.7 SECONDS (9.0-12.0)
--- NOTE | 2016-05-09 09:33 | CODING QUERY NO DIAGNOSIS ---
TREATMENT RENDERED WITHOUT A DIAGNOSIS : 1930 To promote full compliance with coding requirements relating to patient care, physician participation is requested in all cases of outpatient coder uncertainty. Please assist us with providing a diagnosis/symptom for the test(s) below: A diagnosis/symptom was not documented on your Order. A valid diagnosis/symptom is required to bill all insurances. Please remember that we are unable to code a diagnosis of rule out, probable, possible, questionable, or suspected. DOS: 05/02/16 Tests that require a diagnosis: * PROTHROMBIN TIME PRO DIAGNOSIS: Provider Signature: Date: Thank you Nena Gaines [employer] Information Management Once completed, please kindly fax back to [phone] For questions please call [phone]
== END | disposition home or self-care (01) ==
LOC: C.LABOUTLO 09:18
PROVIDERS: ATTEND Family Medicine
DX: Z79.01 Long term (current) use of anticoagulants (principal); Z51.81 Encounter for therapeutic drug level monitoring